=== PATIENT | male | born 1950 | race Caucasian/White ===

== ENCOUNTER → 2018-08-16 10:25 | Outpatient (CLI) | payer OTHER, SELFPAY ==
--- NOTE | 2018-08-16 | DI.MRI.S_ITS ---
PROCEDURE: MR KNEE RT WO CON INDICATIONS: TENDONITIS OF RIGHT KNEE TECHNIQUE: Noncontrast sagittal PD fast spin echo and T2 fast spin echo with fat saturation, sagittal 3-D FLASH with fat saturation; coronal T1 spin echo and PD fast spin echo with fat saturation, and axial PD fast spin echo with fat saturation through the knee. COMPARISON: None. FINDINGS: Image quality: Excellent. Menisci: There is medial meniscus extrusion. Complex tear is present involving the anterior and posterior horns, as well as body of the medial meniscus. The lateral menisci demonstrates normal morphology and internal signal. The meniscal root ligaments appear intact. Cruciate ligaments: Both feet anterior and posterior cruciate ligaments appear thickened and regular, suspicious for chronic injury. No acute ACL or PCL tear. Medial structures: The medial collateral ligament appears intact. The meniscocapsular junction appear intact. Visualized portions of the pes anserinus tendons appear normal. No abnormal bursal fluid. Lateral structures: The lateral collateral ligament and the biceps femoris tendon appear intact. The popliteus tendon appears normal. Iliotibial band appears normal. Anterior structures: The quadriceps and patellar tendons appear intact. Patellar alignment is normal. No femoral trochlear dysplasia or ventral trochlear prominence. No edema in the infrapatellar fat pad. Bones and cartilage: No bone fractures. Mild pulmonary edema in the medial femoral condyle and medial tibial plateau. There is severe cartilage thinning and degeneration of the medial femorotibial compartments, as well as the moderate cartilage degeneration of the patellofemoral compartment. Joint space: There is a large knee joint effusion. Large multiseptated Ash's cyst. Fluid signal in the posterior soft tissue suggests partial rupture/leakage of fluid from the Ash cyst. Small synovial cyst consistent with a proximal tibiofibular joint. Normal appearing synovial plicae are incidentally noted. IMPRESSION: 1. Medial meniscus extrusion and complex tear of the medial meniscus. 2. Suspect old ACL and PCL injuries. No acute cruciate ligament tear. 3. Severe cartilage thinning and cartilage signal degeneration of the medial femorotibial compartment. Reactive marrow edema is present in the medial femorotibial compartment. 4. Large knee joint effusion. 5. Large complex Ash's cyst. 6. Small synovial cyst adjacent to the proximal tibiofibular joint. Dictated by: Luis Rogers M.D. on 08/18/2018 at 8:12 Transcribed by: ANISHA on 08/18/2018 at 8:17 Approved by: Luis Rogers M.D. on 08/18/2018 at 10:40
== END ==
PROVIDERS: PCP Internal Medicine; Visit Provider Orthopaedic Surgery
DX: M76.891 Other specified enthesopathies of right lower limb, excluding foot (principal); S83.231A Complex tear of medial meniscus, current injury, right knee, initial encounter; M25.461 Effusion, right knee; M17.11 Unilateral primary osteoarthritis, right knee
CPT/HCPCS: 73721

== ENCOUNTER → 2020-05-11 08:40 | Outpatient (CLI) | payer OTHER, SELFPAY ==
[2020-05-11 09:33] LABS: Add Manual Diff / Slide Review NO; Basophils Absolute Auto 0 /uL (0-100); Basophils Percent Auto 0.9 % (0-2); Eosinophils Absolute Auto 300 /uL (0-450); Eosinophils Percent Auto 6.3 % (2-4); Hematocrit 43.3 % (41-53); Hemoglobin 14.9 g/dL (13.5-17.5); Lymphocytes Absolute Auto 900 /uL (1100-4500); Lymphocytes Percent Auto 22.5 % (25-40); Mean Corpuscular HGB Conc 34.4 % (30-36); Mean Corpuscular Hemoglobin 33.1 PG (26-34); Mean Corpuscular Volume 96.3 fL (80-100); Monocytes Absolute Auto 400 /uL (0-900); Monocytes Percent Auto 10.5 % (3-14); Neutrophils Absolute Auto 2400 /uL (1500-7000); Neutrophils Percent Auto 59.8 % (50-75); Platelet Count 141 X10^3/uL (150-400); Red Cell Distribution Width 13.1 % (11.6-14.8); White Blood Cell Count 4.1 X10^3/uL (4.5-11.0)
[2020-05-11 09:40] LABS: Alanine Aminotransferase 29 IU/L (<50); Albumin 4.4 g/dL (3.5-5.0); Albumin Globulin Ratio 1.6 (1.0-2.8); Alkaline Phosphatase 55 U/L (38-126); Aspartate Aminotransferase 42 IU/L (17-59); BUN Creatinine Ratio 17.9 (6-22); Bilirubin Total 0.9 mg/dL (0.2-1.3); Blood Urea Nitrogen 17 mg/dL (9-20); Calcium 9.3 mg/dL (8.4-10.2); Carbon Dioxide 26 mmol/L (22-32); Chloride 105 mmol/L (98-107); Cholesterol 190 mg/dL (140-199); Estimated Glomerular Filt Rate > 60.0 mL/min (>60); Globulin 2.8 g/dL (1.7-4.1); Glucose 114 mg/dL (80-110); HDL Cholesterol 76 mg/dL (40-60); HEMOLYSIS < 15 (0-50); LDL Cholesterol Calculated 93 mg/dL (<100); Potassium 4.4 mmol/L (3.4-5.1); Sodium 137 mmol/L (137-145); Total Protein 7.2 g/dL (6.3-8.2); Triglycerides 106 mg/dL (35-150)
[2020-05-11 10:03] LABS: Prostate Specific Antigen Scrn 0.471 ng/mL (0.1-4.0)
== END ==
PROVIDERS: PCP Internal Medicine; Referring Provider Internal Medicine; Visit Provider Internal Medicine
DX: M15.0 Primary generalized (osteo)arthritis (principal); N52.9 Male erectile dysfunction, unspecified; E78.2 Mixed hyperlipidemia; Z12.5 Encounter for screening for malignant neoplasm of prostate
CPT/HCPCS: 36415; 80053; 80061; 84443; 85025; G0103

== ENCOUNTER 2022-09-15 18:03 | Inpatient (IN) | payer OTHER, SELFPAY ==
[2022-09-15] VITALS (25 sets, daily range): BP systolic 147–215; BP diastolic 73–105; PULSE 58–81; RESP 11–41; TEMP 37.2; O2SAT 95–99; BMI 28.7
[2022-09-15 19:13] LABS: Add Manual Diff / Slide Review NO; Basophils Absolute Auto 0 /uL (0-100); Basophils Percent Auto 0.3 % (0-2); Eosinophils Absolute Auto 0 /uL (0-450); Eosinophils Percent Auto 0.1 % (2-4); Hematocrit 47.4 % (41-53); Hemoglobin 16.4 g/dL (13.5-17.5); Lymphocytes Absolute Auto 1200 /uL (1100-4500); Lymphocytes Percent Auto 10.9 % (25-40); Mean Corpuscular HGB Conc 34.5 % (30-36); Mean Corpuscular Hemoglobin 32.5 PG (26-34); Mean Corpuscular Volume 94.1 fL (80-100); Monocytes Absolute Auto 900 /uL (0-900); Monocytes Percent Auto 8.5 % (3-14); Neutrophils Absolute Auto 8900 /uL (1500-7000); Neutrophils Percent Auto 80.2 % (50-75); Platelet Count 170 X10^3/uL (150-400); Red Blood Cell Count 5.03 X10^6/uL (4.5-5.9); Red Cell Distribution Width 13.5 % (11.6-14.8)
[2022-09-15 19:19] LABS: Alanine Aminotransferase 31 IU/L (<50); Albumin 4.5 g/dL (3.5-5.0); Albumin Globulin Ratio 1.2 (1.0-2.8); Alkaline Phosphatase 53 U/L (38-126); Aspartate Aminotransferase 58 IU/L (17-59); BUN Creatinine Ratio 23.5 (6-22); Blood Urea Nitrogen 23 mg/dL (9-20); Carbon Dioxide 21 mmol/L (22-32); Chloride 99 mmol/L (98-107); Estimated Glomerular Filt Rate > 60 mL/min (>60); Globulin 3.7 g/dL (1.7-4.1); Glucose 162 mg/dL (80-110); HEMOLYSIS < 15 (0-50); Lipase 34 U/L (23-300); Sodium 131 mmol/L (137-145); Total Protein 8.2 g/dL (6.3-8.2)
--- NOTE | 2022-09-15 20:12 | ED.ABDPAIN ---
HPI - Abdominal Pain General Chief Complaint: Abdominal Pain Stated Complaint: Peptic Ulcer Flare Up Time Seen by Provider: 09/15/22 18:07 Source: patient Mode of arrival: Ambulatory History of Present Illness HPI narrative: 72-year-old male smoker and daily drinker presents with his in the chief complaint of epigastric pain and nausea which has been severe over the past few days. His states they had a holiday green party and symptoms started in the aftermath, admittedly they consumed multiple Rich cookies and other elements to their diet that are atypical for them. He drinks at least a couple drinks per day and likely had a bit more on that particular day. He states this burning sensation is made worse by eating and drinking, even water and by lying flat. He denies other provocation or palliation. He denies any radiation of his symptoms. He is otherwise well and free of complaint. He denies any dizziness, weakness or lightheadedness. He has no sore throat, cough or chest pain. He denies any difficulty breathing, recent travel or trauma. He has no change in bowel habits such as constipation or diarrhea. He denies any dysuria, frequency or urgency. He states he does have a history of this in the past but has never had an endoscopy Related Data Allergies Allergy/AdvReac Type Severity Reaction Status Date / Time No Known Drug Allergies Allergy Verified 09/15/22 18:14 Review of Systems Review of Systems Narrative: GENERAL: Denies chills, fatigue, malaise, fever, sweats. HEENT: Denies sinus pain, ear pain, sore throat, difficulty swallowing, dizziness. RESPIRATORY: Denies dyspnea, cough, wheezing, hemoptysis, sputum. CARDIOVASCULAR: See HPI GASTROINTESTINAL: See HPI : Denies dysuria, frequency, incontinence, hematuria, urinary retention. MUSCULOSKELETAL: denies weakness, joint pain, or bony pain SKIN: Denies rash, skin lesions, or other NEUROLOGIC: Denies weakness, headache, numbness, change in speech, confusion, seizures, incoordination. PSYCHIATRIC: No concerning psychosocial issues. 12 point review of systems is negative except for those stated above Patient History Social History Smoking Status: Current every day smoker Smoking Status: Current every day smoker alcohol intake frequency: 0-2 drinks per day Substance Use Type: marijuana Exam Narrative Exam Narrative: GENERAL: [72] year old patient appears stated age. Well-developed patient, in mild distress. HEAD: Atraumatic. Normocephalic. EYES: Pupils equal round and reactive. Extraocular motions intact. No scleral icterus. No injection or drainage. ENT: Nose without bleeding, purulent drainage. Throat without erythema, tonsillar hypertrophy or exudate. Airway patent. NECK: Trachea midline. Non tender CARDIOVASCULAR: Regular rate and rhythm without murmurs, gallops, or rubs. RESPIRATORY: Clear to auscultation. Breath sounds equal bilaterally. No wheezes, rales, or rhonchi. GASTROINTESTINAL: Abdomen soft, tenderness in the epigastrium nondistended. EXTREMITIES: No edema or joint tenderness. BACK: Nontender without deformity or crepitance. No flank tenderness. NEURO: AOx3. SKIN: No rash or erythema of visible areas Initial Vital Signs Initial Vital Signs: Vital Signs Temperature 99.0 F 09/15/22 18:09 Pulse Rate 78 09/15/22 18:09 Respiratory Rate 22 09/15/22 18:09 Blood Pressure 180/105 H 09/15/22 18:09 Pulse Oximetry 97 09/15/22 18:09 Oxygen Delivery Method 09/15/22 18:09 Course Orders Ordered: ED Orders 09/15/22 18:20 BNP [NT-proBNP (BNP-Adult 18+)] Stat Complete Blood Count AUTO DIFF Stat Comprehensive Metabolic Panel Stat D Dimer Stat Lipase Stat Troponin & CK Cardiac Panel Stat 09/15/22 20:18 EKG-12 Lead Stat 09/15/22 20:26 US abdomen limited Stat 09/15/22 21:10 Urinalysis and Microscopic Stat Urine Culture Stat 09/15/22 21:11 COVID19 -Nasal RAPID/Pre-Proc Stat 09/15/22 21:15 CT angio chest PE protocol Stat EKG-12 Lead Stat 09/15/22 22:21 Partial Thromboplastin Time Q6H Troponin & CK Cardiac Panel Stat 09/16/22 04:15 Partial Thromboplastin Time Q6H 09/16/22 10:15 Partial Thromboplastin Time Q6H 09/16/22 16:15 Partial Thromboplastin Time Q6H Heparin Sodium/Dextrose (Heparin Drip) 25,000 unit in 500 mls @ 20 mls/hr IV CONT MARÍA; Protocol Last Admin: 09/15/22 22:29 Dose: 1,000 units/hr, 20 mls/hr Documented By: ESE Discontinued Medications Aspirin (Aspirin 81 Mg Chew Tab) 324 mg PO NOW ONE Stop: 09/15/22 22:08 Last Admin: 09/15/22 22:47 Dose: Not Given Documented By: ESE Aspirin (Aspirin Ec 325 Mg Tablet) 325 mg PO NOW ONE Stop: 09/15/22 22:25 Last Admin: 09/15/22 22:46 Dose: 325 mg Documented By: ESE Heparin Sodium (Porcine) (Heparin 5,000 Unit/Ml Vial) 5,000 unit IV NOW ONE Stop: 09/15/22 22:09 Last Admin: 09/15/22 22:30 Dose: 5,000 unit Documented By: ESE Sodium Chloride (Normal Saline 0.9%) 1,000 mls @ 1,000 mls/hr IV BOLUS ONE Stop: 09/15/22 21:25 Last Infusion: 09/15/22 22:28 Dose: 0 mls/hr Documented By: Admin: 09/15/22 20:33 Dose: 1,000 mls/hr Documented By: ESE Nitroglycerin (Nitroglycerin 0.4 Mg Sl Tab) 0.4 mg SL [id number] PRN PRN Reason: Chest Pain Last Admin: 09/15/22 23:09 Dose: 0.4 mg Documented By: Admin: 09/15/22 22:52 Dose: 0.4 mg Documented By: Admin: 09/15/22 22:36 Dose: 0.4 mg Documented By: ESE Ondansetron HCl (Ondansetron 4 Mg/2 Ml Inj) 4 mg IV NOW ONE Stop: 09/15/22 20:27 Last Admin: 09/15/22 20:36 Dose: 4 mg Documented By: ESE Pantoprazole Sodium (Pantoprazole 40 Mg Vial) 40 mg IV NOW ONE Stop: 09/15/22 20:27 Last Admin: 09/15/22 20:36 Dose: 40 mg Documented By: ESE Consultations Consultation #1: discussed with ammonia refrigeration worker cardiology (Dipesh). We have discussed history, physical exam, labs, EKG. Response to therapies. He recommends keeping patient here, on heparin, ASA. Get echo, likely stress test and proceed accordingly. NO need to transfer. Consultation #2: Hospitalist happy to accept Vital Signs Vital signs: Vital Signs - 8 hr 09/15/22 20:17 09/15/22 20:17 09/15/22 20:30 Pulse Rate 62 61 Respiratory Rate Blood Pressure 169/80 H Pulse Oximetry 99 99 Oxygen Delivery Method 09/15/22 20:45 09/15/22 21:00 09/15/22 21:10 Pulse Rate 60 67 62 Respiratory Rate 17 Blood Pressure Pulse Oximetry 98 99 98 Oxygen Delivery Method Room Air 09/15/22 21:10 09/15/22 21:15 09/15/22 21:30 Pulse Rate 60 61 Respiratory Rate 25 H 41 H Blood Pressure 183/93 H Pulse Oximetry 98 99 Oxygen Delivery Method 09/15/22 21:45 09/15/22 22:00 09/15/22 22:12 Pulse Rate 69 76 Respiratory Rate 32 H 33 H Blood Pressure 215/98 H Pulse Oximetry 99 98 Oxygen Delivery Method 09/15/22 22:12 09/15/22 22:36 09/15/22 22:52 Pulse Rate 64 62 65 Respiratory Rate 11 L Blood Pressure 174/89 H 156/73 H 159/88 H Pulse Oximetry 99 Oxygen Delivery Method 09/15/22 22:15 09/15/22 22:15 09/15/22 22:30 Pulse Rate 62 Respiratory Rate 21 Blood Pressure 174/89 H 159/83 H Pulse Oximetry 98 Oxygen Delivery Method 09/15/22 22:30 09/15/22 22:38 09/15/22 22:38 Pulse Rate 58 L 63 Respiratory Rate 17 26 H Blood Pressure 158/81 H Pulse Oximetry 99 97 Oxygen Delivery Method 09/15/22 22:45 09/15/22 22:49 09/15/22 22:49 Pulse Rate 68 72 Respiratory Rate 15 28 H Blood Pressure 159/88 H Pulse Oximetry 98 98 Oxygen Delivery Method 09/15/22 23:09 09/15/22 23:00 09/15/22 23:00 Pulse Rate 66 81 Respiratory Rate 29 H Blood Pressure 148/76 H 147/90 H Pulse Oximetry 98 Oxygen Delivery Method 09/15/22 23:15 09/15/22 23:26 09/15/22 23:26 Pulse Rate 64 65 Respiratory Rate 20 36 H Blood Pressure 182/103 H Pulse Oximetry 95 98 Oxygen Delivery Method 09/15/22 23:27 09/15/22 23:27 09/15/22 23:30 Pulse Rate 72 Respiratory Rate 25 H Blood Pressure 157/95 H 157/98 H Pulse Oximetry 98 Oxygen Delivery Method 09/15/22 23:30 09/15/22 23:45 09/16/22 00:00 Pulse Rate 67 62 Respiratory Rate 29 H 21 Blood Pressure 154/85 H Pulse Oximetry 97 98 Oxygen Delivery Method 09/16/22 00:00 09/16/22 00:15 09/16/22 00:30 Pulse Rate 60 73 Respiratory Rate 16 27 H Blood Pressure 148/77 H Pulse Oximetry 97 Oxygen Delivery Method 09/16/22 00:30 09/16/22 00:45 09/16/22 01:00 Pulse Rate 63 64 60 Respiratory Rate 17 19 19 Blood Pressure Pulse Oximetry 99 98 96 Oxygen Delivery Method 09/16/22 01:01 09/16/22 01:01 Pulse Rate 78 Respiratory Rate 39 H Blood Pressure 170/76 H Pulse Oximetry 98 Oxygen Delivery Method MDM - Abdominal Pain Lab Data Result diagrams: 09/15/22 18:20 09/15/22 18:20 Labs: Lab Results 09/15/22 09/15/22 09/15/22 Range/Units 18:20 18:20 18:20 WBC 11.0 (4.5-11.0) X10^3/uL RBC 5.03 (4.5-5.9) X10^6/uL Hgb 16.4 (13.5-17.5) g/dL Hct 47.4 (41-53) % MCV 94.1 (80-100) fL MCH 32.5 (26-34) PG MCHC 34.5 (30-36) % RDW 13.5 (11.6-14.8) % Plt Count 170 (150-400) X10^3/uL Neut % (Auto) 80.2 H (50-75) % Lymph % (Auto) 10.9 L (25-40) % [place] % (Auto) 8.5 (3-14) % Eos % (Auto) 0.1 L (2-4) % Baso % (Auto) 0.3 (0-2) % Neut # (Auto) 8900 H (9981-6763) /uL Lymph # (Auto) 1200 (3961-2239) /uL [place] # (Auto) 900 (0-900) /uL Eos # (Auto) 0 (0-450) /uL Baso # (Auto) 0 (0-100) /uL APTT (26-36) SECONDS D-Dimer (<500) ng/ml Sodium 131 L (137-145) mmol/L Potassium 4.0 (3.4-5.1) mmol/L Chloride 99 (98-107) mmol/L Carbon Dioxide 21 L (22-32) mmol/L BUN 23 H (9-20) mg/dL Creatinine 0.98 (0.66-1.25) mg/dL Estimated GFR > 60 (>60) mL/min BUN/Creatinine Ratio 23.5 H (6-22) Glucose 162 H (80-110) mg/dL Calcium 10.0 (8.4-10.2) mg/dL Total Bilirubin 1.0 (0.2-1.3) mg/dL AST 58 (17-59) IU/L ALT 31 (<50) IU/L Alkaline Phosphatase 53 (38-126) U/L Total Creatine Kinase 635 H (55-170) U/L CK-MB (CK-2) 7.96 H (<2.37) ng/mL CK-MB (CK-2) Rel Index 1.3 L (1.5-5.0) % Troponin I 0.174 H* (0.01-0.034) ng/mL NT-Pro-B Natriuret Pep (<125) pg/mL Total Protein 8.2 (6.3-8.2) g/dL Albumin 4.5 (3.5-5.0) g/dL Globulin 3.7 (1.7-4.1) g/dL Albumin/Globulin Ratio 1.2 (1.0-2.8) Lipase 34 (23-300) U/L Urine Color Urine Appearance Urine pH (4.5-8.0) Ur Specific [place] (1.000-1.035) Urine Protein (Negative) Urine Glucose (UA) (Negative) g/dL Urine Ketones (NEGATIVE) Urine Occult Blood (Negative) Urine Nitrate (Negative) Urine Bilirubin (NEGATIVE) Urine Urobilinogen (0.2) E.U./dL Ur Leukocyte Esterase (NEGATIVE) Urine RBC (0-5/HPF) Urine WBC (0-5/HPF) Ur Squamous Epith Cells (0-5/HPF) Urine Bacteria (None) Ur Culture Indicated? SARS-CoV-2 (PCR) (Negative) 09/15/22 09/15/22 09/15/22 Range/Units 18:20 18:20 21:10 WBC (4.5-11.0) X10^3/uL RBC (4.5-5.9) X10^6/uL Hgb (13.5-17.5) g/dL Hct (41-53) % MCV (80-100) fL MCH (26-34) PG MCHC (30-36) % RDW (11.6-14.8) % Plt Count (150-400) X10^3/uL Neut % (Auto) (50-75) % Lymph % (Auto) (25-40) % [place] % (Auto) (3-14) % Eos % (Auto) (2-4) % Baso % (Auto) (0-2) % Neut # (Auto) (6499-6221) /uL Lymph # (Auto) (4374-4238) /uL [place] # (Auto) (0-900) /uL Eos # (Auto) (0-450) /uL Baso # (Auto) (0-100) /uL APTT (26-36) SECONDS D-Dimer 1091 H (<500) ng/ml Sodium (137-145) mmol/L Potassium (3.4-5.1) mmol/L Chloride (98-107) mmol/L Carbon Dioxide (22-32) mmol/L BUN (9-20) mg/dL Creatinine (0.66-1.25) mg/dL Estimated GFR (>60) mL/min BUN/Creatinine Ratio (6-22) Glucose (80-110) mg/dL Calcium (8.4-10.2) mg/dL Total Bilirubin (0.2-1.3) mg/dL AST (17-59) IU/L ALT (<50) IU/L Alkaline Phosphatase (38-126) U/L Total Creatine Kinase (55-170) U/L CK-MB (CK-2) (<2.37) ng/mL CK-MB (CK-2) Rel Index (1.5-5.0) % Troponin I (0.01-0.034) ng/mL NT-Pro-B Natriuret Pep 3140 H (<125) pg/mL Total Protein (6.3-8.2) g/dL Albumin (3.5-5.0) g/dL Globulin (1.7-4.1) g/dL Albumin/Globulin Ratio (1.0-2.8) Lipase (23-300) U/L Urine Color Yellow Urine Appearance Clear Urine pH 5.5 (4.5-8.0) Ur Specific [place] 1.010 (1.000-1.035) Urine Protein 1+ H (Negative) Urine Glucose (UA) Negative (Negative) g/dL Urine Ketones Trace H (NEGATIVE) Urine Occult Blood 2+ H (Negative) Urine Nitrate Negative (Negative) Urine Bilirubin Negative (NEGATIVE) Urine Urobilinogen 0.2 (0.2) E.U./dL Ur Leukocyte Esterase Trace H (NEGATIVE) Urine RBC 0-1/hpf (0-5/HPF) Urine WBC 1-5/hpf (0-5/HPF) Ur Squamous Epith Cells 0-1 /hpf (0-5/HPF) Urine Bacteria None seen (None) Ur Culture Indicated? Specimen cultured SARS-CoV-2 (PCR) (Negative) 09/15/22 09/15/22 09/15/22 Range/Units 21:11 22:21 22:21 WBC (4.5-11.0) X10^3/uL RBC (4.5-5.9) X10^6/uL Hgb (13.5-17.5) g/dL Hct (41-53) % MCV (80-100) fL MCH (26-34) PG MCHC (30-36) % RDW (11.6-14.8) % Plt Count (150-400) X10^3/uL Neut % (Auto) (50-75) % Lymph % (Auto) (25-40) % [place] % (Auto) (3-14) % Eos % (Auto) (2-4) % Baso % (Auto) (0-2) % Neut # (Auto) (1675-8036) /uL Lymph # (Auto) (4079-9800) /uL [place] # (Auto) (0-900) /uL Eos # (Auto) (0-450) /uL Baso # (Auto) (0-100) /uL APTT 27 (26-36) SECONDS D-Dimer (<500) ng/ml Sodium (137-145) mmol/L Potassium (3.4-5.1) mmol/L Chloride (98-107) mmol/L Carbon Dioxide (22-32) mmol/L BUN (9-20) mg/dL Creatinine (0.66-1.25) mg/dL Estimated GFR (>60) mL/min BUN/Creatinine Ratio (6-22) Glucose (80-110) mg/dL Calcium (8.4-10.2) mg/dL Total Bilirubin (0.2-1.3) mg/dL AST (17-59) IU/L ALT (<50) IU/L Alkaline Phosphatase (38-126) U/L Total Creatine Kinase 611 H (55-170) U/L CK-MB (CK-2) 7.47 H (<2.37) ng/mL CK-MB (CK-2) Rel Index 1.2 L (1.5-5.0) % Troponin I 0.147 H* (0.01-0.034) ng/mL NT-Pro-B Natriuret Pep (<125) pg/mL Total Protein (6.3-8.2) g/dL Albumin (3.5-5.0) g/dL Globulin (1.7-4.1) g/dL Albumin/Globulin Ratio (1.0-2.8) Lipase (23-300) U/L Urine Color Urine Appearance Urine pH (4.5-8.0) Ur Specific [place] (1.000-1.035) Urine Protein (Negative) Urine Glucose (UA) (Negative) g/dL Urine Ketones (NEGATIVE) Urine Occult Blood (Negative) Urine Nitrate (Negative) Urine Bilirubin (NEGATIVE) Urine Urobilinogen (0.2) E.U./dL Ur Leukocyte Esterase (NEGATIVE) Urine RBC (0-5/HPF) Urine WBC (0-5/HPF) Ur Squamous Epith Cells (0-5/HPF) Urine Bacteria (None) Ur Culture Indicated? SARS-CoV-2 (PCR) Negative (Negative) Imaging Data CT scan - chest: Radiologist's Impression: Close Chest CTA (Signed) Lucas Young - 09/15/22 Launch?[address] [address] [address] Scan Report Signed Patient: Jeffry Reich MR#: [id number] : 1950 Acct:[id number] Age/Sex: 72 / M Date of Service: 09/15/22 Loc: ED Accession Number: [id number] ?? Procedure: CT angio chest PE protocol Ordering Provider: Quintin Aguilar D.O. PROCEDURE:? CT ANGIO CHEST PE PROTOCOL ? INDICATIONS:? chest pain, SOB, elevated trop, elevated DDimer ? TECHNIQUE:? After the administration of intravenous contrast, 2 mm thick sections acquired from the pulmonary apices to the posterior costophrenic angles.? 3-dimensional maximum intensity projection (MIP) coronal and sagittal reformats were then acquired through the thorax.? For radiation dose reduction, the following was used:? automated exposure control, adjustment of mA and/or kV according to patient size.? ? COMPARISON:? None. ? FINDINGS:? Image quality:? Excellent.? ? Pulmonary arteries:? Pulmonary arteries are normal in size, and demonstrate no intraluminal filling defects to suggest central pulmonary embolism.? ? Lungs and pleura:? Lungs are clear.? No pleural effusions or pneumothorax.? Central and peripheral airways are patent.? ? Mediastinum:? Heart size is normal, without pericardial effusion.? No mediastinal or hilar adenopathy.? Thoracic aorta is normal in caliber and enhancement.? Esophagus is normal in caliber, without hiatal hernia.? ? Bones and chest wall:? No suspicious bony lesions.? Ribs and thoracic spine appear intact throughout.? Thyroid gland is not fully visualized.? No axillary or supraclavicular adenopathy.? ? Abdomen:? Visualized upper abdominal solid organs appear normal in the early arterial phase of enhancement except at the liver where within the right posterior hepatic segment mid liver level there is a 1 cm hypodensity that could represent a mildly complex cyst or hemangioma seen on series 4, image 141.? .? ? IMPRESSION:? No pulmonary embolus is found.? There is no pneumonia identified.? Incidental note is made of a 1 cm nonspecific hypodensity within the right posterior hepatic segment which if clinically desired could be further assessed by elective follow-up ultrasound to attempt to differentiate between cyst versus hemangioma. ? ? Dictated by: Lucas Young M.D. on 09/15/2022 at 21:50 ? ? Approved by: Lucas Young M.D. on 09/15/2022 at 21:53 ? [facility] Narrative Medical decision making narrative: 72-year-old male smoker and drinker presents with epigastric pain that initially a painted the picture of a GI presentation. He described it as burning that seemed to worsen with eating and drinking, denies other cardiac equivalent such as dizziness, weakness, lightheadedness, nausea, vomiting, exercise intolerance or unexplained diaphoresis. EKGs showed no obvious occlusive findings. He denies any cardiac history. He does state that at 1 point about 1 week ago when walking up a hill he developed some chest pressure and became short of breath but that was short lived and resolved and he is had multiple opportunities to hike that same [place] in the aftermath without any change, however during our workup his initial troponin was found to be elevated at 0.174, after the 3rd nitro his pain completely resolved. A repeat troponin was obtained and had come down somewhat. He does have an elevated BNP but has no signs of heart failure clinically, denies exertional dyspnea, orthopnea, has no crackles on his exam and no lower extremity edema. Furthermore, chest x-ray shows no obvious signs of heart failure and he is not hypoxemic. He does have a D-dimer above the cutoff and therefore a CT angiogram was obtained which demonstrates no evidence of pulmonary embolism. I have discussed this case with on-call cardiology who given the scenario is comfortable keeping the patient at our facility to complete the workup and suggest against the need for transfer at this time. With this information hospitalist happy to accept patient at our facility. Patient and understand and agree with the plan Discharge Plan Departure Patient Disposition: Admitted As Inpatient Clinical Impression: Acute non-ST elevation myocardial infarction (NSTEMI) Referrals: Serafin Tsang MD [Primary Care Provider] - Admit Date/Time: 09/16/22 02:54
--- NOTE | 2022-09-15 20:26 | DI.US.S_ITS ---
PROCEDURE: US ABDOMEN LIMITED INDICATIONS: EPIGASTRIC PAIN TECHNIQUE: Real-time focused scanning was performed of the abdomen, with image documentation. COMPARISON: None. FINDINGS: The liver is normal in size at 14.6 cm craniocaudad and also normal in echotexture. Within the right hepatic lobe there is a mildly irregular cyst measuring 1.4 x 1.1 x 1.0 cm. The main portal vein shows normal direction of blood flow. The gallbladder appears normal. The bile ducts are poorly seen due to bowel gas. The pancreas could not be well visualized also for the same reason. IMPRESSION: Source of epigastric pain is not seen. Incidental note is made of a right hepatic lobe cyst. Quality of visualization through the area of concern is relatively limited due to overlying bowel gas. Dictated by: Lucas Young M.D. on 09/15/2022 at 22:24 Approved by: Lucas Young M.D. on 09/15/2022 at 22:26
[2022-09-15] MEDS: SODIUM CHLORIDE 0.9% 1,000 ML 1000 ML IV (20:33)
[2022-09-15] MEDS: PANTOPRAZOLE 40 MG VIAL IV (20:36)
[2022-09-15] MEDS: ONDANSETRON 4 MG/2 ML INJ IV (20:36)
[2022-09-15 20:40] LABS: Creatine Kinase 635 U/L (55-170)
[2022-09-15 20:55] LABS: CKMB % Relative Index 1.3 % (1.5-5.0); Creatine Kinase MB 7.96 ng/mL (<2.37); Troponin I 0.174 ng/mL (0.01-0.034)
[2022-09-15 21:03] LABS: D Dimer 1091 ng/ml (<500)
--- NOTE | 2022-09-15 21:15 | DI.CT.S_ITS ---
PROCEDURE: CT ANGIO CHEST PE PROTOCOL INDICATIONS: chest pain, SOB, elevated trop, elevated DDimer TECHNIQUE: After the administration of intravenous contrast, 2 mm thick sections acquired from the pulmonary apices to the posterior costophrenic angles. 3-dimensional maximum intensity projection (MIP) coronal and sagittal reformats were then acquired through the thorax. For radiation dose reduction, the following was used: automated exposure control, adjustment of mA and/or kV according to patient size. COMPARISON: None. FINDINGS: Image quality: Excellent. Pulmonary arteries: Pulmonary arteries are normal in size, and demonstrate no intraluminal filling defects to suggest central pulmonary embolism. Lungs and pleura: Lungs are clear. No pleural effusions or pneumothorax. Central and peripheral airways are patent. Mediastinum: Heart size is normal, without pericardial effusion. No mediastinal or hilar adenopathy. Thoracic aorta is normal in caliber and enhancement. Esophagus is normal in caliber, without hiatal hernia. Bones and chest wall: No suspicious bony lesions. Ribs and thoracic spine appear intact throughout. Thyroid gland is not fully visualized. No axillary or supraclavicular adenopathy. Abdomen: Visualized upper abdominal solid organs appear normal in the early arterial phase of enhancement except at the liver where within the right posterior hepatic segment mid liver level there is a 1 cm hypodensity that could represent a mildly complex cyst or hemangioma seen on series 4, image 141. . IMPRESSION: No pulmonary embolus is found. There is no pneumonia identified. Incidental note is made of a 1 cm nonspecific hypodensity within the right posterior hepatic segment which if clinically desired could be further assessed by elective follow-up ultrasound to attempt to differentiate between cyst versus hemangioma. Dictated by: Lucas Young M.D. on 09/15/2022 at 21:50 Approved by: Lucas Young M.D. on 09/15/2022 at 21:53
[2022-09-15 21:28] LABS: Appearance Urine UA CLEAR; Bilirubin Urine UA NEGATIVE (NEGATIVE); Color Urine UA YELLOW; Glucose Urine UA NEGATIVE (Negative); Ketones Urine UA TRACE (NEGATIVE); Leukocyte Esterase Urine UA TRACE (NEGATIVE); Nitrite Urine UA NEGATIVE (Negative); Occult Blood Urine UA 2+ (Negative); Protein Urine UA 1+ (Negative); Urobilinogen Urine UA 0.2 E.U./dL (0.2); pH Urine UA 5.5 (4.5-8.0)
[2022-09-15 21:34] LABS: COVID19 -Nasal RAPID Negative (Negative)
[2022-09-15 21:36] LABS: NT-proBNP (BNP-Adult 18+) 3140 pg/mL (<125)
[2022-09-15 21:46] LABS: Bacteria Urine None Seen; Culture Indicated Urine Specimen Cultured; RBC Urine 0-1/HPF (0-5/HPF); Squamous Epithelial Cell Urine 0-1 /HPF (0-5/HPF); WBC Urine 1-5/HPF (0-5/HPF)
[2022-09-15] MEDS: HEPARIN DRIP 25,000 UNIT/500 ML IV.SOLN 20 UNIT IV (22:29)
[2022-09-15] MEDS: HEPARIN 5,000 UNIT/ML VIAL 5000 UNIT IV (22:30)
[2022-09-15] MEDS: NITROGLYCERIN 0.4 MG SL TAB SL ×3 (22:36→23:09)
[2022-09-15 22:44] LABS: PTT Partial Thromboplastin Tim 27 SECONDS (26-36)
[2022-09-15 22:45] LABS: Creatine Kinase 611 U/L (55-170)
[2022-09-15] MEDS: ASPIRIN EC 325 MG TABLET PO (22:46)
[2022-09-15 23:01] LABS: CKMB % Relative Index 1.2 % (1.5-5.0); Creatine Kinase MB 7.47 ng/mL (<2.37)
[2022-09-15 23:27] LABS: Troponin I 0.147 ng/mL (0.01-0.034)
[2022-09-16] VITALS (12 sets, daily range): BP systolic 140–177; BP diastolic 76–97; PULSE 60–78; RESP 14–39; TEMP 36.6–37.1; O2SAT 96–100; BMI 29.5
--- NOTE | 2022-09-16 04:26 | DI.ECHO.S_ITS ---
[facility]---------+ [facility] +---------+ : : [address] : : : : [place] : : : : [id number] : : : : Phone: [phone]+ Echocardiogram Report + + :Name: SALOMON PERKINS Study Date: 09/16/2022 Height: 73 in : :[facility] ReadingLocation: Weight: 223 lb : : Gender: Male BSA: 2.3 m2 : :: 1950 Age: 72 yrs BP: 140/87 mmHg: :Reason For Study: NSTEMI : :Ordering Physician: : :YULI HUITRON Performed By: Alex Shipley : :Referring: YULI HUITRON : + + Interpretation Summary The left ventricle is normal in size. Left ventricular systolic function is normal. The ejection fraction is estimated to be 55-60%. There are no focal wall motion abnormalities. Diastolic parameters suggest a relaxation abnormality of the left ventricle, consistent with probable normal filling pressures. The right ventricle is normal in size and function. Pulmonary artery pressures cannot be estimated because of the lack of a measurable TR jet velocity. The left atrium is mildly dilated. Right atrial size is normal. There is no significant valvular heart disease. The ascending aorta is mild-moderately enlarged. Procedure: A two-dimensional transthoracic echocardiogram with color flow and Doppler was performed. The study quality was technically adequate. There is no prior echocardiogram noted for this patient. The patient was in normal sinus rhythm during the exam. Left Ventricle: The left ventricle is normal in size. There is mild concentric left ventricular hypertrophy. Left ventricular systolic function is normal. The ejection fraction is estimated to be 55-60%. There are no focal wall motion abnormalities. Diastolic parameters suggest a relaxation abnormality of the left ventricle, consistent with probable normal filling pressures. Right Ventricle: The right ventricle is normal in size and function. Atria: The left atrium is mildly dilated. Right atrial size is normal. The interatrial septum grossly appears intact with no obvious evidence for an atrial septal defect. Mitral Valve: The mitral valve is normal in structure and function. There is no mitral regurgitation noted. Aortic Valve: The aortic valve is normal in structure and function. No aortic regurgitation is present. Tricuspid Valve: The tricuspid valve is normal in structure and function. No tricuspid regurgitation. Pulmonary artery pressures cannot be estimated because of the lack of a measurable TR jet velocity. Pulmonic Valve: The pulmonic valve is normal in structure and function. There is no pulmonic valvular regurgitation. There is no significant valvular heart disease. Great Vessels: The aortic root is normal size. The ascending aorta is mild- moderately enlarged. The IVC is of normal diameter and collapses greater than 50% with a sniff. This suggests a low right atrial pressure of 3 mm Hg. Pericardium/ Pleura There is no pericardial effusion. There is no pleural effusion. MMode/2D Measurements & Calculations LVIDd: 5.3 cm LVOT diam: 2.1 cm LVIDs: 3.4 cm Ao root diam: 3.8 cm FS: 35.9 % asc Aorta Diam: 4.1 cm IVSd: 1.3 cm LVPWd: 1.2 cm LV crespo. diameter/BSA (cm/m^2): 2.3 LV sys. diameter/BSA (cm/m^2): 1.5 LA A2 area: 27.0 cm2 RA long axis: 5.6 cm LA A4 area: 25.3 cm2 RA area: 16.9 cm2 LA length (vol): 6.4 cm RA vol: 42.8 ml LA vol: 90.4 ml RA : 19.0 ml/m2 LA vol index: 40.1 ml/m2 TAPSE: 2.9 cm Doppler Measurements & Calculations Ao V2 max: 113.9 cm/sec LVOT Max Sridhar: 108.6 cm/sec Ao V2 mean: 82.8 cm/sec LV V1 max P.7 mmHg Ao max P.2 mmHg LV V1 VTI: 23.5 cm Ao mean P.1 mmHg MARILU(I,D): 3.5 cm2 Ao V2 VTI: 23.6 cm MARILU(V,D): 3.3 cm2 sev ratio: 0.99 MARILU indexed to BSA (cm^2/m^2): 1.5 MV E max sridhar: 57.9 cm/sec SV(LVOT): 81.7 ml MV A max sridhar: 76.8 cm/sec MV E/A: 0.75 Med Peak E' Sridhar: 4.5 cm/sec E/E' med: 12.9 Lat Peak E' Sridhar: 6.1 cm/sec E/E' lat: 9.5 E/e' average: 11.2 MV dec time: 0.33 sec Reading Physician:02:11 PM
[2022-09-16 04:36] LABS: Add Manual Diff / Slide Review NO; Basophils Absolute Auto 100 /uL (0-100); Basophils Percent Auto 0.9 % (0-2); Eosinophils Absolute Auto 0 /uL (0-450); Eosinophils Percent Auto 0.2 % (2-4); Hematocrit 44.1 % (41-53); Hemoglobin 15.2 g/dL (13.5-17.5); Lymphocytes Absolute Auto 1300 /uL (1100-4500); Lymphocytes Percent Auto 16.7 % (25-40); Mean Corpuscular HGB Conc 34.4 % (30-36); Mean Corpuscular Hemoglobin 32.3 PG (26-34); Mean Corpuscular Volume 93.8 fL (80-100); Monocytes Absolute Auto 700 /uL (0-900); Neutrophils Absolute Auto 5900 /uL (1500-7000); Neutrophils Percent Auto 73.2 % (50-75); Platelet Count 140 X10^3/uL (150-400); Red Cell Distribution Width 13.5 % (11.6-14.8)
[2022-09-16 04:44] LABS: PTT Partial Thromboplastin Tim 72 SECONDS (26-36)
[2022-09-16 04:46] LABS: BUN Creatinine Ratio 18.6 (6-22); Blood Urea Nitrogen 21 mg/dL (9-20); Calcium 8.8 mg/dL (8.4-10.2); Carbon Dioxide 27 mmol/L (22-32); Chloride 102 mmol/L (98-107); Estimated Glomerular Filt Rate > 60 mL/min (>60); Glucose 131 mg/dL (80-110); HEMOLYSIS < 15 (0-50); Potassium 3.9 mmol/L (3.4-5.1); Sodium 135 mmol/L (137-145)
[2022-09-16 05:02] LABS: Troponin I 0.129 ng/mL (0.01-0.034)
--- NOTE | 2022-09-16 05:07 | PC.ADMIT ---
[id number] [facility] Admission Note: The patient,Jeffry Reich,72 y/o, was given written information regarding hospital policies, unit procedures and contact persons. Patient's smoking status: Former smoker. Vital Signs - 8 hr 09/15/22 21:10 09/15/22 21:10 09/15/22 21:15 Temperature Pulse Rate 62 60 Respiratory Rate 17 25 H Blood Pressure 183/93 H Pulse Oximetry 98 98 Oxygen Delivery Method 09/15/22 21:30 09/15/22 21:45 09/15/22 22:00 Temperature Pulse Rate 61 69 76 Respiratory Rate 41 H 32 H 33 H Blood Pressure Pulse Oximetry 99 99 98 Oxygen Delivery Method 09/15/22 22:12 09/15/22 22:12 09/15/22 22:36 Temperature Pulse Rate 64 62 Respiratory Rate 11 L Blood Pressure 215/98 H 174/89 H 156/73 H Pulse Oximetry 99 Oxygen Delivery Method 09/15/22 22:52 09/15/22 22:15 09/15/22 22:15 Temperature Pulse Rate 65 62 Respiratory Rate 21 Blood Pressure 159/88 H 174/89 H Pulse Oximetry 98 Oxygen Delivery Method 09/15/22 22:30 09/15/22 22:30 09/15/22 22:38 Temperature Pulse Rate 58 L 63 Respiratory Rate 17 26 H Blood Pressure 159/83 H Pulse Oximetry 99 97 Oxygen Delivery Method 09/15/22 22:38 09/15/22 22:45 09/15/22 22:49 Temperature Pulse Rate 68 Respiratory Rate 15 Blood Pressure 158/81 H 159/88 H Pulse Oximetry 98 Oxygen Delivery Method 09/15/22 22:49 09/15/22 23:09 09/15/22 23:00 Temperature Pulse Rate 72 66 Respiratory Rate 28 H Blood Pressure 148/76 H 147/90 H Pulse Oximetry 98 Oxygen Delivery Method 09/15/22 23:00 09/15/22 23:15 09/15/22 23:26 Temperature Pulse Rate 81 64 65 Respiratory Rate 29 H 20 36 H Blood Pressure Pulse Oximetry 98 95 98 Oxygen Delivery Method 09/15/22 23:26 09/15/22 23:27 09/15/22 23:27 Temperature Pulse Rate 72 Respiratory Rate 25 H Blood Pressure 182/103 H 157/95 H Pulse Oximetry 98 Oxygen Delivery Method 09/15/22 23:30 09/15/22 23:30 09/15/22 23:45 Temperature Pulse Rate 67 62 Respiratory Rate 29 H 21 Blood Pressure 157/98 H Pulse Oximetry 97 98 Oxygen Delivery Method 09/16/22 00:00 09/16/22 00:00 09/16/22 00:15 Temperature Pulse Rate 60 73 Respiratory Rate 16 27 H Blood Pressure 154/85 H Pulse Oximetry 97 Oxygen Delivery Method 09/16/22 00:30 09/16/22 00:30 09/16/22 00:45 Temperature Pulse Rate 63 64 Respiratory Rate 17 19 Blood Pressure 148/77 H Pulse Oximetry 99 98 Oxygen Delivery Method 09/16/22 01:00 09/16/22 01:01 09/16/22 01:01 Temperature Pulse Rate 60 78 Respiratory Rate 19 39 H Blood Pressure 170/76 H Pulse Oximetry 96 98 Oxygen Delivery Method 09/16/22 03:12 09/16/22 03:44 09/16/22 03:55 Temperature 98.7 F Pulse Rate 62 65 66 Respiratory Rate 14 16 20 Blood Pressure 169/91 H 153/80 H 168/87 H Pulse Oximetry 97 98 96 Oxygen Delivery Method Room Air Room Air 09/16/22 05:04 Temperature Pulse Rate Respiratory Rate Blood Pressure Pulse Oximetry Oxygen Delivery Method Room Air Patient admitted to room 216 per stretcher from ER. Walked from stretcher into room and into bed. Is alert and oriented. Breath sounds CTA with RA sat of 96%. BP elevated at 168/87 and telemetry reading was SR w/PAC's. Patient reports he came to hospital because of epigastric pain, dry heaves and feeling miserable; currently with 2/10 burning discomfort over epigastric area which he states is tolerable. BT present and abdomen is soft. Denies dysuria, frequency or urgency with urination. Is able to move himself in bed. Instructed to call for assistance if he wants to go to the bathroom so that staff can assist him with IV pump; okay to stand at bedside to use urinal as fall risk score is low. rooming in tonight. Continues to be on heparin drip. Oriented to call light and bed controls.
--- NOTE | 2022-09-16 06:02 | P.HP_ITS ---
History of Present Illness History of Present Illness Date Patient Seen: 09/16/22 Time Patient Seen: 05:30 Chief complaint: Peptic Ulcer Flare Up Narrative: Mr. Reich is a 72M with remote smoking history, GERD, who presents to the hospital with lower chest, epigastric pain. He has known reflux, possible peptic ulcers which he occasionally takes prilosec for this. He states recently was at a [employer] and had sugary and rich foods and afterward had symptoms that were very typical of his heartburn. He had nausea, burning chest discomfort. Two days ago, on Saturday, he was especially uncomfortable, he states he tried to drink water and could not keep it down, he had significant dry heaving. He had an episode of shortness of breath a few days ago, but currently does not. He has no radiation to chest pain. It hurts with lying flat. But not exacerbated by movement, mostly just with trying to swallow something. He came in to the ED because he was told to by family members, but he states these symptoms are entirely consistent with previous heartburn/GERD exacerbations. He has never had an EGD. He has no known heart disease and has never had a stress test. In the ED workup was done, vitals notable for high blood pressure. WBC 11, Na 131, co2 21, creatinine 0.98. trop 0.174->0.147, bnp 3140. D-dimer elevated 1091. UA with trace leuk esterase, culture pending. He was given aspirin, nitro and protonix and his pain had some improvement. EKG showed no acute changes. CTA chest showed no PE. Abdominal ultrasound showed no acute process. He was started on heparin drip and admitted for further treatment. Family history: father with cad, cabg in his 40s or 50s Patient History Family & Social History Social History: household members spouse Prior Living Arrangements House Safety & Behavioral: Feels Safe in Current Yes Environment Been Physically Hurt or No Threatened By a Person Tobacco & Substance use: Tobacco type cigarettes Smoking Status Former smoker alcohol intake current alcohol intake frequency 0-2 drinks per day Substance Use Type marijuana Meds Home Medications and Allergies Home Medications Medication Instructions Recorded Confirmed Type No Known Home Medications 09/16/22 09/16/22 History Allergies Allergy/AdvReac Type Severity Reaction Status Date / Time No Known Drug Allergies Allergy Verified 09/15/22 18:14 Review of Systems Review of Systems Narrative: 14 systems reviewed and negative aside from what is noted in HPI Exam Vital Signs (past 8 hours): - 09/15/22 22:12 09/15/22 22:12 09/15/22 22:36 Temperature Pulse Rate 64 62 Respiratory Rate 11 L Blood Pressure 215/98 H 174/89 H 156/73 H Pulse Oximetry 99 Oxygen Delivery Method 09/15/22 22:52 09/15/22 22:15 09/15/22 22:15 Temperature Pulse Rate 65 62 Respiratory Rate 21 Blood Pressure 159/88 H 174/89 H Pulse Oximetry 98 Oxygen Delivery Method 09/15/22 22:30 09/15/22 22:30 09/15/22 22:38 Temperature Pulse Rate 58 L 63 Respiratory Rate 17 26 H Blood Pressure 159/83 H Pulse Oximetry 99 97 Oxygen Delivery Method 09/15/22 22:38 09/15/22 22:45 09/15/22 22:49 Temperature Pulse Rate 68 Respiratory Rate 15 Blood Pressure 158/81 H 159/88 H Pulse Oximetry 98 Oxygen Delivery Method 09/15/22 22:49 09/15/22 23:09 09/15/22 23:00 Temperature Pulse Rate 72 66 Respiratory Rate 28 H Blood Pressure 148/76 H 147/90 H Pulse Oximetry 98 Oxygen Delivery Method 09/15/22 23:00 09/15/22 23:15 09/15/22 23:26 Temperature Pulse Rate 81 64 65 Respiratory Rate 29 H 20 36 H Blood Pressure Pulse Oximetry 98 95 98 Oxygen Delivery Method 09/15/22 23:26 09/15/22 23:27 09/15/22 23:27 Temperature Pulse Rate 72 Respiratory Rate 25 H Blood Pressure 182/103 H 157/95 H Pulse Oximetry 98 Oxygen Delivery Method 09/15/22 23:30 09/15/22 23:30 09/15/22 23:45 Temperature Pulse Rate 67 62 Respiratory Rate 29 H 21 Blood Pressure 157/98 H Pulse Oximetry 97 98 Oxygen Delivery Method 09/16/22 00:00 09/16/22 00:00 09/16/22 00:15 Temperature Pulse Rate 60 73 Respiratory Rate 16 27 H Blood Pressure 154/85 H Pulse Oximetry 97 Oxygen Delivery Method 09/16/22 00:30 09/16/22 00:30 09/16/22 00:45 Temperature Pulse Rate 63 64 Respiratory Rate 17 19 Blood Pressure 148/77 H Pulse Oximetry 99 98 Oxygen Delivery Method 09/16/22 01:00 09/16/22 01:01 09/16/22 01:01 Temperature Pulse Rate 60 78 Respiratory Rate 19 39 H Blood Pressure 170/76 H Pulse Oximetry 96 98 Oxygen Delivery Method 09/16/22 03:12 09/16/22 03:44 09/16/22 03:55 Temperature 98.7 F Pulse Rate 62 65 66 Respiratory Rate 14 16 20 Blood Pressure 169/91 H 153/80 H 168/87 H Pulse Oximetry 97 98 96 Oxygen Delivery Method Room Air Room Air 09/16/22 05:04 Temperature Pulse Rate Respiratory Rate Blood Pressure Pulse Oximetry Oxygen Delivery Method Room Air Oxygen Delivery Method Room Air Narrative Exam Narrative: GEN: no acute distress HEENT: moist mucous membranes, PERRL NECK: trachea midline, no JVD PULM: clear bilaterally, no wheezes, rhonchi, rales CV: regular rate and rhythm, no murmurs ABD: soft, nontender, nondistended, no organomegaly, normal bowel sounds EXT: warm and well perfused with no edema NEURO: awake, alert, oriented, no focal deficits noted Objective Labs Result Diagrams: 09/16/22 04:18 09/16/22 04:18 Labs: Laboratory Results - last 24 hr 09/15/22 09/15/22 09/15/22 18:20 18:20 18:20 WBC 11.0 RBC 5.03 Hgb 16.4 Hct 47.4 MCV 94.1 MCH 32.5 MCHC 34.5 RDW 13.5 Plt Count 170 Neut % (Auto) 80.2 H Lymph % (Auto) 10.9 L [place] % (Auto) 8.5 Eos % (Auto) 0.1 L Baso % (Auto) 0.3 Neut # (Auto) 8900 H Lymph # (Auto) 1200 [place] # (Auto) 900 Eos # (Auto) 0 Baso # (Auto) 0 APTT D-Dimer Sodium 131 L Potassium 4.0 Chloride 99 Carbon Dioxide 21 L BUN 23 H Creatinine 0.98 Estimated GFR > 60 BUN/Creatinine Ratio 23.5 H Glucose 162 H Calcium 10.0 Total Bilirubin 1.0 AST 58 ALT 31 Alkaline Phosphatase 53 Total Creatine Kinase 635 H CK-MB (CK-2) 7.96 H CK-MB (CK-2) Rel Index 1.3 L Troponin I 0.174 H* NT-Pro-B Natriuret Pep Total Protein 8.2 Albumin 4.5 Globulin 3.7 Albumin/Globulin Ratio 1.2 Lipase 34 Urine Color Urine Appearance Urine pH Ur Specific [place] Urine Protein Urine Glucose (UA) Urine Ketones Urine Occult Blood Urine Nitrate Urine Bilirubin Urine Urobilinogen Ur Leukocyte Esterase Urine RBC Urine WBC Ur Squamous Epith Cells Urine Bacteria Ur Culture Indicated? SARS-CoV-2 (PCR) 09/15/22 09/15/22 09/15/22 18:20 18:20 21:10 WBC RBC Hgb Hct MCV MCH MCHC RDW Plt Count Neut % (Auto) Lymph % (Auto) [place] % (Auto) Eos % (Auto) Baso % (Auto) Neut # (Auto) Lymph # (Auto) [place] # (Auto) Eos # (Auto) Baso # (Auto) APTT D-Dimer 1091 H Sodium Potassium Chloride Carbon Dioxide BUN Creatinine Estimated GFR BUN/Creatinine Ratio Glucose Calcium Total Bilirubin AST ALT Alkaline Phosphatase Total Creatine Kinase CK-MB (CK-2) CK-MB (CK-2) Rel Index Troponin I NT-Pro-B Natriuret Pep 3140 H Total Protein Albumin Globulin Albumin/Globulin Ratio Lipase Urine Color Yellow Urine Appearance Clear Urine pH 5.5 Ur Specific [place] 1.010 Urine Protein 1+ H Urine Glucose (UA) Negative Urine Ketones Trace H Urine Occult Blood 2+ H Urine Nitrate Negative Urine Bilirubin Negative Urine Urobilinogen 0.2 Ur Leukocyte Esterase Trace H Urine RBC 0-1/hpf Urine WBC 1-5/hpf Ur Squamous Epith Cells 0-1 /hpf Urine Bacteria None seen Ur Culture Indicated? Specimen cultured SARS-CoV-2 (PCR) 09/15/22 09/15/22 09/15/22 21:11 22:21 22:21 WBC RBC Hgb Hct MCV MCH MCHC RDW Plt Count Neut % (Auto) Lymph % (Auto) [place] % (Auto) Eos % (Auto) Baso % (Auto) Neut # (Auto) Lymph # (Auto) [place] # (Auto) Eos # (Auto) Baso # (Auto) APTT 27 D-Dimer Sodium Potassium Chloride Carbon Dioxide BUN Creatinine Estimated GFR BUN/Creatinine Ratio Glucose Calcium Total Bilirubin AST ALT Alkaline Phosphatase Total Creatine Kinase 611 H CK-MB (CK-2) 7.47 H CK-MB (CK-2) Rel Index 1.2 L Troponin I 0.147 H* NT-Pro-B Natriuret Pep Total Protein Albumin Globulin Albumin/Globulin Ratio Lipase Urine Color Urine Appearance Urine pH Ur Specific [place] Urine Protein Urine Glucose (UA) Urine Ketones Urine Occult Blood Urine Nitrate Urine Bilirubin Urine Urobilinogen Ur Leukocyte Esterase Urine RBC Urine WBC Ur Squamous Epith Cells Urine Bacteria Ur Culture Indicated? SARS-CoV-2 (PCR) Negative 09/16/22 09/16/22 09/16/22 04:18 04:18 04:18 WBC 8.0 RBC 4.70 Hgb 15.2 Hct 44.1 MCV 93.8 MCH 32.3 MCHC 34.4 RDW 13.5 Plt Count 140 L Neut % (Auto) 73.2 Lymph % (Auto) 16.7 L [place] % (Auto) 9.0 Eos % (Auto) 0.2 L Baso % (Auto) 0.9 Neut # (Auto) 5900 Lymph # (Auto) 1300 [place] # (Auto) 700 Eos # (Auto) 0 Baso # (Auto) 100 APTT 72 H D D-Dimer Sodium 135 L Potassium 3.9 Chloride 102 Carbon Dioxide 27 BUN 21 H Creatinine 1.13 Estimated GFR > 60 BUN/Creatinine Ratio 18.6 Glucose 131 H Calcium 8.8 Total Bilirubin AST ALT Alkaline Phosphatase Total Creatine Kinase CK-MB (CK-2) CK-MB (CK-2) Rel Index Troponin I 0.129 H* NT-Pro-B Natriuret Pep Total Protein Albumin Globulin Albumin/Globulin Ratio Lipase Urine Color Urine Appearance Urine pH Ur Specific [place] Urine Protein Urine Glucose (UA) Urine Ketones Urine Occult Blood Urine Nitrate Urine Bilirubin Urine Urobilinogen Ur Leukocyte Esterase Urine RBC Urine WBC Ur Squamous Epith Cells Urine Bacteria Ur Culture Indicated? SARS-CoV-2 (PCR) Assessment & Plan Assessment & Plan narrative: 1. Acute NSTEMI -description of symptoms and chest pain sound much more consistent with GI process -possible that retching and vomiting was enough stress to cause demand ischemia -trending troponins have shown decrease -EKG with no acute ischemic changes -continue aspirin, statin, and heparin gtt for now -cardiology recommended echo and possible stress test -ECHO ordered, pending result may determine if stress needed 2. GERD -ordered pantoprazole 3. Elevated blood pressure -possibly secondary to discomfort -needs follow up as outpatient to consider starting anti-hypertensives if continues to be elevated Patient will be made inpatient. He will need ECHO to show if any indication of wall motion abnormalities. He may need stress test pending this results and possibly cardiac cath given nstemi. CODE: Full Proxy: Michelle Reich I have utilized all available resources to reconcile the patient's home medications Time Spent With Patient Critical Care time: I spent a total of [] minutes of critical care time on this patient's care today; this time is exclusive of procedural time.
[2022-09-16] MEDS: PANTOPRAZOLE DR 40 MG TABLET PO (06:38)
[2022-09-16] MEDS: ASPIRIN EC 81 MG TABLET PO (09:11)
--- NOTE | 2022-09-16 09:22 | CM.DANOTE ---
DCP: Case received, EMR reviewed and met with patient. Spouse, Michelle, was at bedside. Introduced self and role. Was able to complete DCP assessment based upon information currently available. Patient is a 72 year old male who admitted early this morning to the care of the hospitalist team. PCP: Magdi Elizabeth, formerly, Dr Tsang. Payer: confirmed: [employer]. Patient came to the hospital via private vehicle secondary to having epigastric pain and nausea. Notes indicate that patient and spouse had a holiday green party, symptoms started aftermath, concern about consuming too many rich foods. Notes also indicate that case was discussed with cardiology, and will be having an echo, possible stress test. Patient does have history of reflux, peptic ulcers. Patient holds diagnosis of acute NSTEMI. Met with patient and spouse in his room. Both are pleasant. Patient is alert and oriented, attempted to eat some of his breakfast. They both reside in [place]. Patient is independent at his baseline. Asked him if he was assigned a new primary care provider since Dr. Tsang retired. He stated, he was not impressed by him, had only seen him once, he did have a provider at [facility], but is far. He indicated that he has not seen a provider since Dr. Tsang, around 2019. He did ask about other providers in the area. Did let him know that [facility] physicians do have some openings, would need to call and confirm that they accept his insurance. P: DCP to continue to follow for needs. He will have some tests today. Patient should be able to go home when deemed medically stable. Rosaura Cruz RN/Client Strategist Discharge Planning/Care Management CM Discharge Assessment Start: 09/16/22 09:21 Freq: Status: Active Protocol: Document 09/16/22 09:21 (Rec: 09/16/22 09:21 [id number]) Discharge Planning Assessment Assigned Director Of Distance Learning Rosaura Cruz RN/Client Strategist Advance Directives? No History Provided By Patient,Medical Record Prior Living Arrangements House Household Members spouse Type of transporation used prior to Drives own vehicle admit Independent with ADL's Yes Is patient alert and oriented? Yes Caregiver for Another No Barriers to Discharge No Discharge Plan Home Transportation Arrangement Spouse Referrals Initiated None needed Whiteboard Updated in Patient Room with Yes name and ext. # of Director Of Distance Learning Review Status In Process Next Review Type Continued Stay Review
[2022-09-16] MEDS: MAG HYDROX/ALUM/SIMETH 30 ML UDC PO (11:40)
[2022-09-16 12:18] LABS: PTT Partial Thromboplastin Tim 53 SECONDS (26-36)
[2022-09-16 14:20] LABS: Hemoglobin A1C% w Est Avg Glu 6.3 % (4.0-6.0)
[2022-09-16 14:29] LABS: Cholesterol 178 mg/dL (140-199); HDL Cholesterol 67 mg/dL (40-60); LDL Cholesterol Calculated 83 mg/dL (<100); Triglycerides 141 mg/dL (35-150)
--- NOTE | 2022-09-16 15:38 | PC.NURSE ---
Day shift: Paperwork signed and all questions answered. Left unit via WC at approx 1540. Spouse in room for teachings. Dr Arciniega told Pt he is pre-diabetic. scripts sent electronic to Pt's pharmacy. ROXI Phipps helped Pt to car.
--- NOTE | 2022-09-16 20:00 | PM.DS.1 ---
History of Present Illness History of Present Illness Chief complaint: Peptic Ulcer Flare Up Narrative: Per history and physical: ?72M with remote smoking history, GERD, who presents to the hospital with lower chest, epigastric pain. He has known reflux, possible peptic ulcers which he occasionally takes prilosec for this. He states recently was at a libertarian and had sugary and rich foods and afterward had symptoms that were very typical of his heartburn. He had nausea, burning chest discomfort. Two days ago, on Saturday, he was especially uncomfortable, he states he tried to drink water and could not keep it down, he had significant dry heaving. He had an episode of shortness of breath a few days ago, but currently does not. He has no radiation to chest pain. It hurts with lying flat. But not exacerbated by movement, mostly just with trying to swallow something. He came in to the ED because he was told to by family members, but he states these symptoms are entirely consistent with previous heartburn/GERD exacerbations. He has never had an EGD. He has no known heart disease and has never had a stress test. In the ED workup was done, vitals notable for high blood pressure. WBC 11, Na 131, co2 21, creatinine 0.98. trop 0.174->0.147, bnp 3140. D-dimer elevated 1091. UA with trace leuk esterase, culture pending. He was given aspirin, nitro and protonix and his pain had some improvement.? EKG showed no acute changes. CTA chest showed no PE. Abdominal ultrasound showed no acute process. He was started on heparin drip and admitted for further treatment. Family history: father with cad, cabg in his 40s or 50s Discharge Providers Provider Date of admission: 09/16/22 02:54 Discharge Date: 09/16/22 Primary care physician: Serafin Tsang MD Discharge provider: Liz Hinkle MD Summary Hospital Course Discharge Diagnosis: 1. Acute NSTEMI 2. GERD 3. Elevated blood pressure new line 4. Prediabetes with hemoglobin A1c of 6.3% Hospital Course: Please see history and physical for full details. In brief, patient has chronic gastroesophageal reflux disease which has not been well controlled. He has monthly episodes of exacerbations of dyspepsia, odynophagia, and reflux symptoms. Typically they resolve with treatment inclusive of Tums and Prilosec. However, the current episode did not improve after Prilosec. He also had nausea and vomiting. He presented to the emergency department and was found to have a slightly elevated troponin. He had no anginal symptoms. However given his history of borderline hypertension and family history he was admitted for further evaluation. Echocardiogram was done which showed no wall motion abnormalities. Troponins were trending down. We discussed options inclusive of remaining in the hospital for 1 additional day for a cardiac stress test versus discharging home with outpatient follow-up. He elected outpatient follow-up and discharge. Is encouraged to follow-up with gastroenterology for consideration of an EGD. Previous history of an upper GI bleed. He states he was never scoped. Does complain of a single area in his esophagus that is painful with each swallow. He will be placed empirically on Protonix and Carafate. He will continue aspirin low-dose for now. Would recommend close follow-up as he does have prediabetes, borderline hypertension, and family history. He likely will need an outpatient stress test. Status at Discharge Cognitive/behavioral status at discharge: at baseline, oriented Functional status at discharge: independent ambulation Overall status at discharge: patient is back to baseline Exam Vital Signs (past 8 hours): Oxygen Delivery Method Room Air Oxygen Flow Rate 0 Narrative Exam Narrative: GEN: Alert and oriented x 3, NAD HEENT:NC, Face symmetric CHEST: Respiratory excursions symmetric, CTAB CV: RRR, no M/R/G ABD: Soft, NT/ND, BT present in all 4 quadrants, no organomegaly or masses EXTR: warm, well perfused, no C/C/E SKIN: warm and dry, no rash NEURO: Alert and oriented x 3, nonfocal Objective Labs Result Diagrams: 09/16/22 04:18 09/16/22 04:18 Labs: Laboratory Results - last 24 hr 09/15/22 09/15/22 09/15/22 18:20 18:20 18:20 WBC RBC Hgb Hct MCV MCH MCHC RDW Plt Count Neut % (Auto) Lymph % (Auto) [place] % (Auto) Eos % (Auto) Baso % (Auto) Neut # (Auto) Lymph # (Auto) [place] # (Auto) Eos # (Auto) Baso # (Auto) APTT D-Dimer 1091 H Sodium Potassium Chloride Carbon Dioxide BUN Creatinine Estimated GFR BUN/Creatinine Ratio Glucose Hemoglobin A1c Calcium Total Creatine Kinase 635 H CK-MB (CK-2) 7.96 H CK-MB (CK-2) Rel Index 1.3 L Troponin I 0.174 H* NT-Pro-B Natriuret Pep 3140 H Triglycerides Cholesterol LDL Cholesterol, Calc HDL Cholesterol Urine Color Urine Appearance Urine pH Ur Specific [place] Urine Protein Urine Glucose (UA) Urine Ketones Urine Occult Blood Urine Nitrate Urine Bilirubin Urine Urobilinogen Ur Leukocyte Esterase Urine RBC Urine WBC Ur Squamous Epith Cells Urine Bacteria Ur Culture Indicated? SARS-CoV-2 (PCR) 09/15/22 09/15/22 09/15/22 21:10 21:11 22:21 WBC RBC Hgb Hct MCV MCH MCHC RDW Plt Count Neut % (Auto) Lymph % (Auto) [place] % (Auto) Eos % (Auto) Baso % (Auto) Neut # (Auto) Lymph # (Auto) [place] # (Auto) Eos # (Auto) Baso # (Auto) APTT D-Dimer Sodium Potassium Chloride Carbon Dioxide BUN Creatinine Estimated GFR BUN/Creatinine Ratio Glucose Hemoglobin A1c Calcium Total Creatine Kinase 611 H CK-MB (CK-2) 7.47 H CK-MB (CK-2) Rel Index 1.2 L Troponin I 0.147 H* NT-Pro-B Natriuret Pep Triglycerides Cholesterol LDL Cholesterol, Calc HDL Cholesterol Urine Color Yellow Urine Appearance Clear Urine pH 5.5 Ur Specific [place] 1.010 Urine Protein 1+ H Urine Glucose (UA) Negative Urine Ketones Trace H Urine Occult Blood 2+ H Urine Nitrate Negative Urine Bilirubin Negative Urine Urobilinogen 0.2 Ur Leukocyte Esterase Trace H Urine RBC 0-1/hpf Urine WBC 1-5/hpf Ur Squamous Epith Cells 0-1 /hpf Urine Bacteria None seen Ur Culture Indicated? Specimen cultured SARS-CoV-2 (PCR) Negative 09/15/22 09/16/22 09/16/22 22:21 04:18 04:18 WBC 8.0 RBC 4.70 Hgb 15.2 Hct 44.1 MCV 93.8 MCH 32.3 MCHC 34.4 RDW 13.5 Plt Count 140 L Neut % (Auto) 73.2 Lymph % (Auto) 16.7 L [place] % (Auto) 9.0 Eos % (Auto) 0.2 L Baso % (Auto) 0.9 Neut # (Auto) 5900 Lymph # (Auto) 1300 [place] # (Auto) 700 Eos # (Auto) 0 Baso # (Auto) 100 APTT 27 72 H D D-Dimer Sodium Potassium Chloride Carbon Dioxide BUN Creatinine Estimated GFR BUN/Creatinine Ratio Glucose Hemoglobin A1c Calcium Total Creatine Kinase CK-MB (CK-2) CK-MB (CK-2) Rel Index Troponin I NT-Pro-B Natriuret Pep Triglycerides Cholesterol LDL Cholesterol, Calc HDL Cholesterol Urine Color Urine Appearance Urine pH Ur Specific [place] Urine Protein Urine Glucose (UA) Urine Ketones Urine Occult Blood Urine Nitrate Urine Bilirubin Urine Urobilinogen Ur Leukocyte Esterase Urine RBC Urine WBC Ur Squamous Epith Cells Urine Bacteria Ur Culture Indicated? SARS-CoV-2 (PCR) 09/16/22 09/16/22 09/16/22 04:18 11:54 11:54 WBC RBC Hgb Hct MCV MCH MCHC RDW Plt Count Neut % (Auto) Lymph % (Auto) [place] % (Auto) Eos % (Auto) Baso % (Auto) Neut # (Auto) Lymph # (Auto) [place] # (Auto) Eos # (Auto) Baso # (Auto) APTT 53 H D D-Dimer Sodium 135 L Potassium 3.9 Chloride 102 Carbon Dioxide 27 BUN 21 H Creatinine 1.13 Estimated GFR > 60 BUN/Creatinine Ratio 18.6 Glucose 131 H Hemoglobin A1c 6.3 H Calcium 8.8 Total Creatine Kinase CK-MB (CK-2) CK-MB (CK-2) Rel Index Troponin I 0.129 H* NT-Pro-B Natriuret Pep Triglycerides Cholesterol LDL Cholesterol, Calc HDL Cholesterol Urine Color Urine Appearance Urine pH Ur Specific [place] Urine Protein Urine Glucose (UA) Urine Ketones Urine Occult Blood Urine Nitrate Urine Bilirubin Urine Urobilinogen Ur Leukocyte Esterase Urine RBC Urine WBC Ur Squamous Epith Cells Urine Bacteria Ur Culture Indicated? SARS-CoV-2 (PCR) 09/16/22 11:54 WBC RBC Hgb Hct MCV MCH MCHC RDW Plt Count Neut % (Auto) Lymph % (Auto) [place] % (Auto) Eos % (Auto) Baso % (Auto) Neut # (Auto) Lymph # (Auto) [place] # (Auto) Eos # (Auto) Baso # (Auto) APTT D-Dimer Sodium Potassium Chloride Carbon Dioxide BUN Creatinine Estimated GFR BUN/Creatinine Ratio Glucose Hemoglobin A1c Calcium Total Creatine Kinase CK-MB (CK-2) CK-MB (CK-2) Rel Index Troponin I NT-Pro-B Natriuret Pep Triglycerides 141 Cholesterol 178 LDL Cholesterol, Calc 83 HDL Cholesterol 67 H Urine Color Urine Appearance Urine pH Ur Specific [place] Urine Protein Urine Glucose (UA) Urine Ketones Urine Occult Blood Urine Nitrate Urine Bilirubin Urine Urobilinogen Ur Leukocyte Esterase Urine RBC Urine WBC Ur Squamous Epith Cells Urine Bacteria Ur Culture Indicated? SARS-CoV-2 (PCR) PFSH Social History household members: spouse Smoking Status: Former smoker alcohol intake: current Discharge Plan Discharge Plan Patient Disposition: Home Provider Discharge Comment: Take protonix daily for acid reflux. Avoid large meals/large volumes of fluids. Do not eat or drink within 3 hours of bedtime. Elevate the head of your bed. Abstain from alcohol. Take carafate for the next several days to help relieve your symptoms. Recommend: Contact [facility] to get scheduled for an EGD (endoscopy). (Recommend: Dr. Yanez, but can see any physician). Your cholesterol is great. You are prediabetic. Your Hemoglobin A1C is 6.3%. Please start a controlled carbohydrate diet (look online for good ideas). Please get a new PCP and follow-up. Discharge orders & Medications Prescriptions: New aspirin 81 mg Tablet,Delayed Release (Dr/Ec) 81 mg PO DAILY Qty: 30 0RF pantoprazole 40 mg Tablet,Delayed Release (Dr/Ec) 40 mg PO 0700 Qty: 30 0RF sucralfate [Carafate] 100 mg/mL suspension 10 ml PO QACHS Qty: 200 0RF Follow up/Referrals: Serafin Tsang MD [Primary Care Provider] - Diet/Activity/Treatments Diet: Diet as Tolerated Diet comment: Heart healthy Activity: As tolerated Oxygen: N/A Visit Report/Discharge Packet Instructions: Cardiac Troponin, Echocardiogram, DI for Gastroesophageal Reflux Disease (GERD) Discharge Data Primary Care Provider: Serafin Tsang
== END 2022-09-16 15:40 | disposition home or self-care (01) | DRG 282 ==
LOC: ED 22:31 → AC 09-16 02:55
PROVIDERS: Family Medicine; Admitting Provider Internal Medicine; Emergency Provider Emergency Medicine; PCP Internal Medicine; Referring Provider Emergency Medicine; Visit Provider Internal Medicine
DX: I21.4 Non-ST elevation (NSTEMI) myocardial infarction (principal); K21.9 Gastro-esophageal reflux disease without esophagitis; I10 Essential (primary) hypertension; R73.03 Prediabetes; Z87.891 Personal history of nicotine dependence; Z20.822 Contact with and (suspected) exposure to COVID-19
CPT/HCPCS: 36415; 71275; 76705; 80048; 80053; 80061; 81001; 82550; 82553; 83036; 83690; 83880; 84484; 85025; 85379; 85730; 87086; 87635; 93005; 93306; 96374; 96375; 96376; 99284; 99285; C9803; C9113; J1644; J2405; Q9967

== ENCOUNTER 2022-12-13 07:19 | Emergency (ER) | payer OTHER, SELFPAY ==
[2022-09-16 04:05] VITALS: BMI 29.5
[2022-12-13 07:20] VITALS: BP 167/89; PULSE 127; RESP 18; TEMP 36.6; O2SAT 98; BMI 30.5
--- NOTE | 2022-12-13 07:28 | DI.RAD.S_ITS ---
PROCEDURE: XR CHEST 1V INDICATIONS: chest pain TECHNIQUE: One view of the chest was acquired. COMPARISON: None. FINDINGS: Surgical changes and devices: None. Lungs and pleura: Lungs are clear. No pleural effusions or pneumothorax. Mediastinum: Mediastinal contours appear normal. Heart size is normal. Bones and chest wall: No suspicious bony lesions. Overlying soft tissues appear unremarkable. IMPRESSION: No acute cardiopulmonary abnormality. Dictated by: Teddy Marcelino M.D. on 12/13/2022 at 8:22 Approved by: Teddy Marcelino M.D. on 12/13/2022 at 8:24
[2022-12-13 07:46] LABS: Add Manual Diff / Slide Review NO; Basophils Absolute Auto 200 /uL (0-100); Basophils Percent Auto 3.9 % (0-2); Eosinophils Absolute Auto 400 /uL (0-450); Eosinophils Percent Auto 7.8 % (2-4); Hematocrit 47.9 % (41-53); Hemoglobin 15.9 g/dL (13.5-17.5); Lymphocytes Absolute Auto 900 /uL (1100-4500); Lymphocytes Percent Auto 18.7 % (25-40); Mean Corpuscular HGB Conc 33.2 % (30-36); Mean Corpuscular Hemoglobin 31.5 PG (26-34); Mean Corpuscular Volume 94.7 fL (80-100); Monocytes Absolute Auto 400 /uL (0-900); Neutrophils Absolute Auto 2800 /uL (1500-7000); Neutrophils Percent Auto 60.6 % (50-75); Platelet Count 135 X10^3/uL (150-400); Red Blood Cell Count 5.06 X10^6/uL (4.5-5.9); Red Cell Distribution Width 13.9 % (11.6-14.8); White Blood Cell Count 4.6 X10^3/uL (4.5-11.0)
[2022-12-13 07:47] LABS: COVID19 -Nasal RAPID Negative (Negative)
--- NOTE | 2022-12-13 07:50 | ED_ITS ---
HPI - Arrhythmia/Palpitations General Chief Complaint: Arrhythmia/Palpitations Stated Complaint: heart rate 135, high BP Time Seen by Provider: 12/13/22 07:50 Source: patient Mode of arrival: Ambulatory Limitations: no limitations History of Present Illness HPI narrative: This is a 72-year-old male with history of GERD, prior NSTEMI, prediabetes who presents with complaint of feeling some left upper chest discomfort the last about 20 minutes he realized that his heart rhythm felt funny and it was fast and irregular he states it is improved at this time and at bedside his heart rate is 60s. Patient states that he did not feel short of breath he felt lightheaded earlier today but not currently. He denies any diaphoresis. No nausea or vomiting. No swelling of his extremities. He states he was urinating a little bit more this morning. Patient states he has not had similar symptoms in the past. He does have a history of GERD he states he takes pantoprazole he denies cardiac history but then states he was here in September had a peptic ulcer states he had positive troponin, had a negative nuclear med scan and echo and his notes states that he did have an NSTEMI with positive troponins. Patient did not have a stress test at any point. He is also had an EGD and colonoscopy and hemorrhoid surgery in the past. No tobacco, he does use THC. He states he was drinking several alcoholic drinks daily but has stopped as his blood sugars were elevated he drinks 1 a day sometimes just 2 or 3 times a week. Does note his dad had a three-vessel CABG in his 50s or 60s but states that he drank dumont grease daily, he states his sisters do not have any cardiac history he denies any cardiac history for his brother but his brother has . Related Data Previous Rx's Medication Instructions Recorded aspirin 81 mg tablet,delayed 81 mg PO DAILY #30 tabs 09/16/22 release pantoprazole 40 mg tablet,delayed 40 mg PO 0700 #30 tabs 09/16/22 release sucralfate 100 mg/mL oral 10 ml PO QACHS #200 mL 09/16/22 suspension (Carafate) Allergies Allergy/AdvReac Type Severity Reaction Status Date / Time No Known Drug Allergies Allergy Verified 09/15/22 18:14 Review of Systems Review of Systems ROS Unobtainable: All systems reviewed & are unremarkable except as noted in HPI and below Patient History Social History household members: spouse Smoking Status: Former smoker alcohol intake: current Smoking Status: Former smoker alcohol intake frequency: 0-2 drinks per day Substance Use Type: marijuana Exam Narrative Exam Narrative: GENERAL: Alert and oriented x three, well-appearing male in mild distress. Patient ambulated to the room without issue. HEENT: Head normocephalic, atraumatic, EOMI, pupils reactive, face symmetric, moist mucous membranes NECK: Supple, full range of motion CARDIOVASCULAR: Regular rate and rhythm without murmurs, rubs or gallops. No JVD. No swelling bilateral lower extremities. Patient heart rate is in the 50s to 60s at this time RESPIRATORY: Breath sounds equal bilaterally, no wheezes rales or rhonchi. ABDOMEN: Soft, nontender. Normoactive bowel sounds all 4 quadrants. No guardin g or rebound, rigidity, no mass : No CVA tenderness EXTREMITIES: Normal range of motion, no clubbing or edema. Neurovascularly intact NEUROLOGICAL: Cranial nerves II through XII grossly intact. Moving all extremities. Normal gait. SKIN: Warm, dry, no petechiae, no rashes or lesions. Initial Vital Signs Initial Vital Signs: Vital Signs Temperature 98 F 12/13/22 07:20 Pulse Rate 127 H 12/13/22 07:20 Respiratory Rate 18 12/13/22 07:20 Blood Pressure 167/89 H 12/13/22 07:20 Pulse Oximetry 98 12/13/22 07:20 Oxygen Delivery Method Room Air 12/13/22 07:20 Course Orders Ordered: Discontinued Medications Aspirin (Aspirin 81 Mg Chew Tab) 324 mg PO NOW ONE Stop: 12/13/22 07:29 Last Admin: 12/13/22 09:48 Dose: Not Given Documented By: RLS Vital Signs Vital signs: Vital Signs - 8 hr 12/13/22 07:20 Temperature 98 F Pulse Rate 127 H Respiratory Rate 18 Blood Pressure 167/89 H Pulse Oximetry 98 Oxygen Delivery Method Room Air MDM - Arrhythmia/Palpitations Lab Data 12/13/22 07:35 12/13/22 07:35 Labs: Lab Results 12/13/22 12/13/22 12/13/22 Range/Units 07:26 07:35 07:35 WBC 4.6 (4.5-11.0) X10^3/uL RBC 5.06 (4.5-5.9) X10^6/uL Hgb 15.9 (13.5-17.5) g/dL Hct 47.9 (41-53) % MCV 94.7 (80-100) fL MCH 31.5 (26-34) PG MCHC 33.2 (30-36) % RDW 13.9 (11.6-14.8) % Plt Count 135 L (150-400) X10^3/uL Neut % (Auto) 60.6 (50-75) % Lymph % (Auto) 18.7 L (25-40) % [place] % (Auto) 9.0 (3-14) % Eos % (Auto) 7.8 H (2-4) % Baso % (Auto) 3.9 H (0-2) % Neut # (Auto) 2800 (8380-1635) /uL Lymph # (Auto) 900 L (9279-2951) /uL [place] # (Auto) 400 (0-900) /uL Eos # (Auto) 400 (0-450) /uL Baso # (Auto) 200 H (0-100) /uL PT (10.1-12.7) SECONDS INR (0.9-1.3) APTT (26-36) SECONDS Sodium 143 (137-145) mmol/L Potassium 4.6 (3.4-5.1) mmol/L Chloride 104 (98-107) mmol/L Carbon Dioxide 29 (22-32) mmol/L BUN 16 (9-20) mg/dL Creatinine 0.87 (0.66-1.25) mg/dL Estimated GFR > 60 (>60) mL/min BUN/Creatinine Ratio 18.4 (6-22) Glucose 154 H (80-110) mg/dL Calcium 9.2 (8.4-10.2) mg/dL Magnesium 2.1 (1.6-2.3) mg/dL Total Bilirubin 0.8 (0.2-1.3) mg/dL AST 41 (17-59) IU/L ALT 26 (<50) IU/L Alkaline Phosphatase 52 (38-126) U/L Total Creatine Kinase 165 (55-170) U/L CK-MB (CK-2) 2.05 (<2.37) ng/mL CK-MB (CK-2) Rel Index 1.2 L (1.5-5.0) % Troponin I < 0.012 (0.01-0.034) ng/mL NT-Pro-B Natriuret Pep (<125) pg/mL Total Protein 8.1 (6.3-8.2) g/dL Albumin 4.5 (3.5-5.0) g/dL Globulin 3.6 (1.7-4.1) g/dL Albumin/Globulin Ratio 1.3 (1.0-2.8) Lipase 41 (23-300) U/L SARS-CoV-2 (PCR) Negative (Negative) 12/13/22 12/13/22 12/13/22 Range/Units 07:35 07:41 09:32 WBC (4.5-11.0) X10^3/uL RBC (4.5-5.9) X10^6/uL Hgb (13.5-17.5) g/dL Hct (41-53) % MCV (80-100) fL MCH (26-34) PG MCHC (30-36) % RDW (11.6-14.8) % Plt Count (150-400) X10^3/uL Neut % (Auto) (50-75) % Lymph % (Auto) (25-40) % [place] % (Auto) (3-14) % Eos % (Auto) (2-4) % Baso % (Auto) (0-2) % Neut # (Auto) (2854-0081) /uL Lymph # (Auto) (3613-2771) /uL [place] # (Auto) (0-900) /uL Eos # (Auto) (0-450) /uL Baso # (Auto) (0-100) /uL PT 10.8 (10.1-12.7) SECONDS INR 0.9 (0.9-1.3) APTT 32 (26-36) SECONDS Sodium (137-145) mmol/L Potassium (3.4-5.1) mmol/L Chloride (98-107) mmol/L Carbon Dioxide (22-32) mmol/L BUN (9-20) mg/dL Creatinine (0.66-1.25) mg/dL Estimated GFR (>60) mL/min BUN/Creatinine Ratio (6-22) Glucose (80-110) mg/dL Calcium (8.4-10.2) mg/dL Magnesium (1.6-2.3) mg/dL Total Bilirubin (0.2-1.3) mg/dL AST (17-59) IU/L ALT (<50) IU/L Alkaline Phosphatase (38-126) U/L Total Creatine Kinase (55-170) U/L CK-MB (CK-2) (<2.37) ng/mL CK-MB (CK-2) Rel Index (1.5-5.0) % Troponin I < 0.012 (0.01-0.034) ng/mL NT-Pro-B Natriuret Pep 550 H (<125) pg/mL Total Protein (6.3-8.2) g/dL Albumin (3.5-5.0) g/dL Globulin (1.7-4.1) g/dL Albumin/Globulin Ratio (1.0-2.8) Lipase (23-300) U/L SARS-CoV-2 (PCR) (Negative) Urine Dip Bedside Urine Glucose Negative Bedside Urine Bilirubin - Negative Bedside Urine Ketone - Negative Urine Specific [place] 1.010 Bedside Urine Occult Blood +/- Bedside Urine pH 6.0 Bedside Urine Protein - Negative Bedside Urine Urobilinogen - Negative Bedside Urine Nitrite - Negative Bedside Urine Leukocytes - Negative Esterase Imaging Data Chest x-ray: Radiologist's Impresson: [address] [address] XRay Report Signed Patient: Jeffry Reich V MR#: [id number] : 1950 Acct:[id number] Age/Sex: 72 / M Date of Service: 12/13/22 Loc: ED Accession Number: [id number] ?? Procedure: XR chest 1V Ordering Provider: Ermelinda Burns D.O. PROCEDURE:? XR CHEST 1V ? INDICATIONS:? chest pain ? TECHNIQUE:? One view of the chest was acquired.? ? COMPARISON:? None. ? FINDINGS:? ? Surgical changes and devices:? None.? ? Lungs and pleura:? Lungs are clear.? No pleural effusions or pneumothorax.? ? Mediastinum:? Mediastinal contours appear normal.? Heart size is normal.? ? Bones and chest wall:? No suspicious bony lesions.? Overlying soft tissues appear unremarkable.? ? IMPRESSION:? No acute cardiopulmonary abnormality. ? ? Dictated by: Teddy Marcelino M.D. on 12/13/2022 at 8:22 ? ? Approved by: Teddy Marcelino M.D. on 12/13/2022 at 8:24?? ECG Data Attestation: I personally reviewed and interpreted this ECG as follows: Prior ECG tracings: available for review Interpretation: EKG shows appears to be an accelerated junctional rhythm rate of 126 QRS of 96 and QTC of 495. Patient does have occasional P waves but not consistently actually quite regular. Patient has prior from 09/15/2022 was sinus bradycardia with sinus arrhythmia does not show ST segment changes. EKG 2. Sinus bradycardia rate of 55 MD 194 QRS of 100 QTC of 419. No acute ST she elevation or depression appreciated. Left axis deviation. Patient's EKG appears similar to prior from 09/15/[address] segments. MDM Narrative Medical decision making narrative: 72-year-old male with history of NSTEMI on pantoprazole and prediabetes presents with elevated heart rate does appear to have a junctional rhythm, labs including CBC, CMP, troponin electrolytes and chest x-ray were ordered. Patient had repeat EKG ordered as patient heart rate improved into the 50s and 60s suspect he cardioverted. Patient does not have a rising troponin. He has not had any additional symptoms. Discussed he needs to follow up with primary care, would recommend an aspirin daily he states he talked to Cardiology but in light of his new change I would recommend this and follow-up for further evaluation. Discharge Plan Departure Patient Disposition: Home Clinical Impression: Accelerated atrioventricular junctional rhythm Instructions: DI for Arrhythmias Activity Restrictions/Additional Instructions: Follow-up with your physician for recheck, I would recommend follow-up with them and/or Cardiology. They may start you on a medication such as beta-morteza if you have recurrent episodes and blood thinner for stroke prevention I would recommend continuing aspirin 81 mg daily you do have some cardiac risk factors. Please return for recurrent symptoms, new chest pain, shortness of breath, passing out, persistent fast irregular heartbeat, nausea vomiting, swelling of extremities or other new or concerning changes. Prescriptions: No Action aspirin 81 mg Tablet,Delayed Release (Dr/Ec) 81 mg PO DAILY Qty: 30 0RF pantoprazole 40 mg Tablet,Delayed Release (Dr/Ec) 40 mg PO 0700 Qty: 30 0RF sucralfate [Carafate] 100 mg/mL suspension 10 ml PO QACHS Qty: 200 0RF Referrals: Bucky Gamino MD [Primary Care Provider] - Stand Alone Forms: Patient Portal/API
[2022-12-13 07:53] LABS: INR 0.9 (0.9-1.3); Prothrombin Time 10.8 SECONDS (10.1-12.7)
[2022-12-13 07:56] LABS: PTT Partial Thromboplastin Tim 32 SECONDS (26-36)
[2022-12-13 08:06] LABS: Alanine Aminotransferase 26 IU/L (<50); Albumin 4.5 g/dL (3.5-5.0); Albumin Globulin Ratio 1.3 (1.0-2.8); Alkaline Phosphatase 52 U/L (38-126); Aspartate Aminotransferase 41 IU/L (17-59); BUN Creatinine Ratio 18.4 (6-22); Bilirubin Total 0.8 mg/dL (0.2-1.3); Blood Urea Nitrogen 16 mg/dL (9-20); Calcium 9.2 mg/dL (8.4-10.2); Carbon Dioxide 29 mmol/L (22-32); Chloride 104 mmol/L (98-107); Creatine Kinase 165 U/L (55-170); Estimated Glomerular Filt Rate > 60 mL/min (>60); Globulin 3.6 g/dL (1.7-4.1); Glucose 154 mg/dL (80-110); HEMOLYSIS < 15 (0-50); Lipase 41 U/L (23-300); Magnesium 2.1 mg/dL (1.6-2.3); Potassium 4.6 mmol/L (3.4-5.1); Sodium 143 mmol/L (137-145); Total Protein 8.1 g/dL (6.3-8.2)
[2022-12-13 08:14] LABS: NT-proBNP (BNP-Adult 18+) 550 pg/mL (<125)
[2022-12-13 08:17] LABS: Troponin I < 0.012 ng/mL (0.01-0.034)
[2022-12-13 08:20] LABS: CKMB % Relative Index 1.2 % (1.5-5.0); Creatine Kinase MB 2.05 ng/mL (<2.37)
[2022-12-13 09:29] VITALS: PULSE 53; RESP 21; O2SAT 99
[2022-12-13 09:30] VITALS: BP 161/85; PULSE 55; RESP 14; O2SAT 99
[2022-12-13 10:00] VITALS: BP 157/81; PULSE 51; RESP 16; O2SAT 99
[2022-12-13 10:02] LABS: Troponin I < 0.012 ng/mL (0.01-0.034)
[2022-12-13 10:30] VITALS: BP 164/78; PULSE 51; RESP 13; O2SAT 97
== END 2022-12-13 10:43 | disposition home or self-care (01) ==
PROVIDERS: Emergency Provider Emergency Medicine; PCP Internal Medicine
DX: I49.8 Other specified cardiac arrhythmias (principal); R07.9 Chest pain, unspecified; Z20.822 Contact with and (suspected) exposure to COVID-19
CPT/HCPCS: 36415; 71045; 80053; 81003; 82550; 82553; 83690; 83735; 83880; 84484; 85025; 85610; 85730; 87635; 93005; 99283; 99284; C9803

== ENCOUNTER 2024-01-06 18:12 | Emergency (ER) | payer OTHER, SELFPAY ==
[2022-09-16 04:05] VITALS: BMI 29.5
[2024-01-06 18:49] VITALS: BP 209/101; PULSE 52; RESP 20; TEMP 36.6; O2SAT 99; BMI 28.7
--- NOTE | 2024-01-06 18:54 | DI.RAD.S_ITS ---
PROCEDURE: XR CHEST 1V INDICATIONS: chest pain TECHNIQUE: One view of the chest was acquired. COMPARISON: [facility], CR, XR CHEST 1V, 12/13/2022, 7:37. FINDINGS: Surgical changes and devices: None. Lungs and pleura: Lungs are clear. No pleural effusions or pneumothorax. Mediastinum: Mediastinal contours appear normal. Heart size is normal. Bones and chest wall: No suspicious bony lesions. Overlying soft tissues appear unremarkable. IMPRESSION: No acute cardiopulmonary abnormality is seen. Dictated by: Luis Rogers M.D. on 01/06/2024 at 19:24 Approved by: Luis Rogers M.D. on 01/06/2024 at 19:24
[2024-01-06 19:07] LABS: Add Manual Diff / Slide Review NO; Basophils Absolute Auto 0 /uL (0-100); Basophils Percent Auto 1.1 % (0-2); Eosinophils Absolute Auto 200 /uL (0-450); Eosinophils Percent Auto 6.6 % (2-4); Hemoglobin 13.5 g/dL (13.5-17.5); Lymphocytes Absolute Auto 1100 /uL (1100-4500); Lymphocytes Percent Auto 29.7 % (25-40); Mean Corpuscular HGB Conc 33.8 % (30-36); Mean Corpuscular Hemoglobin 32.3 PG (26-34); Mean Corpuscular Volume 95.4 fL (80-100); Monocytes Absolute Auto 400 /uL (0-900); Monocytes Percent Auto 9.8 % (3-14); Neutrophils Absolute Auto 2000 /uL (1500-7000); Neutrophils Percent Auto 52.8 % (50-75); Platelet Count 130 X10^3/uL (150-400); Red Blood Cell Count 4.19 X10^6/uL (4.5-5.9); Red Cell Distribution Width 13.6 % (11.6-14.8); White Blood Cell Count 3.7 X10^3/uL (4.5-11.0)
[2024-01-06 19:18] LABS: INR 0.9 (0.9-1.3)
[2024-01-06 19:21] LABS: PTT Partial Thromboplastin Tim 31 SECONDS (25.1-36.5)
--- NOTE | 2024-01-06 19:22 | ED_ITS ---
HPI - General Adult General Chief complaint: Hypertension Stated complaint: BP 208/110 enlarged acsending aorta Time Seen by Provider: 01/06/24 18:32 Source: patient Mode of arrival: Ambulatory History of Present Illness HPI narrative: 73-year-old male with history of slightly enlarged aortic root (4.2cm per patient) presents for elevated blood pressure readings this evening. Patient states that he did have a lot of salt in his food last night as well as some alcohol, which he believes may be contributing to his blood pressure readings. 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 Patient states his blood pressure is usually within normal limits, however this evening they were as high as 200 systolic measured on a home blood pressure cuff. Patient denies chest pain, shortness of breath, worst headache of life, other complaints at this time. Related Data Previous Rx's Medication Instructions Recorded aspirin 81 mg tablet,delayed 81 mg PO DAILY #30 tabs 09/16/22 release pantoprazole 40 mg tablet,delayed 40 mg PO 0700 #30 tabs 09/16/22 release sucralfate 100 mg/mL oral 10 ml PO QACHS #200 mL 09/16/22 suspension (Carafate) Allergies Allergy/AdvReac Type Severity Reaction Status Date / Time No Known Drug Allergies Allergy Verified 01/06/24 18:54 Review of Systems Review of Systems Narrative: Negative except as noted above Patient History Social History household members: spouse Smoking Status: Former smoker alcohol intake: current Smoking Status: Former smoker alcohol intake frequency: 0-2 drinks per day Substance Use Type: marijuana Exam Initial Vital Signs Initial Vital Signs: Vital Signs Temperature 98 F 01/06/24 18:49 Pulse Rate 52 L 01/06/24 18:49 Respiratory Rate 20 01/06/24 18:49 Blood Pressure 209/101 H 01/06/24 18:49 Pulse Oximetry 99 01/06/24 18:49 Oxygen Delivery Method Room Air 01/06/24 18:49 Const: Awake, alert, no acute distress, nontoxic appearing Cardiac: regular rate, regular rhythm RESP: unlabored, clear bilaterally, no wheezing GI: Soft, nontender, nondistended, no rebound, no guarding MSK: Atraumatic, full range of motion, pulses equal Skin: Warm, Dry, intact, no rashes Neuro: AO x3, CN II-XII grossly intact, moves all extremities Course Orders Ordered: Discontinued Medications Aspirin (Aspirin 81 Mg Chew Tab) 324 mg PO NOW ONE Stop: 01/06/24 18:55 Last Admin: 01/06/24 19:23 Dose: 324 mg Documented By: BARRON Vital Signs Vital signs: Vital Signs - 8 hr 01/06/24 18:49 01/06/24 19:24 01/06/24 19:25 Temperature 98 F Pulse Rate 52 L 51 L 51 L Respiratory Rate 20 20 18 Blood Pressure 209/101 H 191/96 H Pulse Oximetry 99 98 98 Oxygen Delivery Method Room Air 01/06/24 19:25 01/06/24 19:25 01/06/24 19:30 Temperature Pulse Rate 51 L Respiratory Rate 18 Blood Pressure 191/96 H 190/91 H Pulse Oximetry 97 Oxygen Delivery Method 01/06/24 19:30 Temperature Pulse Rate 52 L Respiratory Rate 16 Blood Pressure Pulse Oximetry 99 Oxygen Delivery Method Room Air Medical Decision Making Differential Diagnosis Differential Diagnosis: Asymptomatic hypertension, hypertensive urgency, kidney failure Lab Data 01/06/24 19:00 01/06/24 19:00 Labs: Lab Results 01/06/24 Range/Units 19:00 WBC 3.7 L (4.5-11.0) X10^3/uL RBC 4.19 L (4.5-5.9) X10^6/uL Hgb 13.5 (13.5-17.5) g/dL Hct 40.0 L (41-53) % MCV 95.4 (80-100) fL MCH 32.3 (26-34) PG MCHC 33.8 (30-36) % RDW 13.6 (11.6-14.8) % Plt Count 130 L (150-400) X10^3/uL Neut % (Auto) 52.8 (50-75) % Lymph % (Auto) 29.7 (25-40) % [place] % (Auto) 9.8 (3-14) % Eos % (Auto) 6.6 H (2-4) % Baso % (Auto) 1.1 (0-2) % Neut # (Auto) 2000 (2608-7437) /uL Lymph # (Auto) 1100 (9987-5882) /uL [place] # (Auto) 400 (0-900) /uL Eos # (Auto) 200 (0-450) /uL Baso # (Auto) 0 (0-100) /uL PT 10.0 (9.4-12.5) SECONDS INR 0.9 (0.9-1.3) APTT 31 (25.1-36.5) SECONDS Sodium 139 (137-145) mmol/L Potassium 4.0 (3.4-5.1) mmol/L Chloride 106 (98-107) mmol/L Carbon Dioxide 27 (22-32) mmol/L BUN 23 H (9-20) mg/dL Creatinine 0.73 (0.66-1.25) mg/dL Estimated GFR > 60 (>60) mL/min BUN/Creatinine Ratio 31.5 H (6-22) Glucose 91 (80-110) mg/dL Calcium 9.1 (8.4-10.2) mg/dL Magnesium 2.1 (1.6-2.3) mg/dL Total Bilirubin 0.6 (0.2-1.3) mg/dL AST 36 (17-59) IU/L ALT 25 (<50) IU/L Alkaline Phosphatase 57 (38-126) U/L Total Creatine Kinase 156 (55-170) U/L Troponin I < 0.012 (0.01-0.034) ng/mL Total Protein 7.3 (6.3-8.2) g/dL Albumin 4.2 (3.5-5.0) g/dL Globulin 3.1 (1.7-4.1) g/dL Albumin/Globulin Ratio 1.4 (1.0-2.8) Lipase 40 (23-300) U/L [facility] Narrative Medical decision making narrative: Well-appearing patient with asymptomatic elevated blood pressure readings this evening. Hypertension likely exacerbated by increased salt intake and alcohol intake the night before. Laboratory work reviewed, patient has chronic thrombocytopenia which is unchanged from his baseline, patient also has WBC count 3.7 of uncertain significance. Kidney function, magnesium, electrolytes all within normal limits. Patient counseled on lab x-ray findings, discussed changes that patient may make to his lisinopril dosing. In addition recommended close PCP follow up. ED return precautions discussed at bedside. Patient expressed understanding of the plan and is in agreement at this time. All questions answered at the time of discharge. Discharge Plan Departure Patient Disposition: Home Clinical Impression: Hypertension Qualifiers: Hypertension type: unspecified Qualified Code(s): I10 - Essential (primary) hypertension Instructions: DI for High Blood Pressure Activity Restrictions/Additional Instructions: Your laboratory work showed a slightly decreased white blood cell count, and slightly low platelets, however you chronically seemed to have low platelets from previous lab draws. Due to your age I do recommend establishing care with a primary care doctor, however in the meantime for your blood pressure you may increase your lisinopril dose in 5 mg increments, with maximum dosage of 40 mg per day. Prescriptions: No Action aspirin 81 mg Tablet,Delayed Release (Dr/Ec) 81 mg PO DAILY Qty: 30 0RF pantoprazole 40 mg Tablet,Delayed Release (Dr/Ec) 40 mg PO 0700 Qty: 30 0RF sucralfate [Carafate] 100 mg/mL suspension 10 ml PO QACHS Qty: 200 0RF Referrals: Bucky Gamino MD [Primary Care Provider] - Stand Alone Forms: Patient Portal/API
[2024-01-06 19:23] LABS: Alanine Aminotransferase 25 IU/L (<50); Albumin 4.2 g/dL (3.5-5.0); Albumin Globulin Ratio 1.4 (1.0-2.8); Alkaline Phosphatase 57 U/L (38-126); Aspartate Aminotransferase 36 IU/L (17-59); BUN Creatinine Ratio 31.5 (6-22); Bilirubin Total 0.6 mg/dL (0.2-1.3); Blood Urea Nitrogen 23 mg/dL (9-20); Calcium 9.1 mg/dL (8.4-10.2); Carbon Dioxide 27 mmol/L (22-32); Chloride 106 mmol/L (98-107); Creatine Kinase 156 U/L (55-170); Estimated Glomerular Filt Rate > 60 mL/min (>60); Globulin 3.1 g/dL (1.7-4.1); Glucose 91 mg/dL (80-110); HEMOLYSIS < 15 (0-50); Lipase 40 U/L (23-300); Magnesium 2.1 mg/dL (1.6-2.3); Sodium 139 mmol/L (137-145); Total Protein 7.3 g/dL (6.3-8.2)
[2024-01-06] MEDS: ASPIRIN 81 MG CHEW TAB 324 MG PO (19:23)
[2024-01-06 19:24] VITALS: PULSE 51; RESP 20; O2SAT 98
[2024-01-06 19:25] VITALS: BP 191/96; PULSE 51; RESP 18; O2SAT 97; O2SAT 98
[2024-01-06 19:30] VITALS: BP 190/91; PULSE 52; RESP 16; O2SAT 99
--- NOTE | 2024-01-06 19:31 | PC.NURSE ---
Pt reports feeling puffy in the face and headache. Pt checked blood pressure and highest was 208/110 at home. He took a new medication of lisinopril 5mg today. This was the first time taking this medication and was recently prescribed. Pt also reports having 8 hard drinks yesterday. Currently denies headache.
[2024-01-06 19:34] LABS: Troponin I < 0.012 ng/mL (0.01-0.034)
[2024-01-06 20:00] VITALS: PULSE 50; RESP 21; O2SAT 99
[2024-01-06 20:01] VITALS: BP 174/88; PULSE 52; RESP 18; O2SAT 99
== END 2024-01-06 20:06 | disposition home or self-care (01) ==
PROVIDERS: Emergency Provider Emergency Medicine; PCP Internal Medicine
DX: I10 Essential (primary) hypertension (principal); Z87.891 Personal history of nicotine dependence
CPT/HCPCS: 36415; 71045; 80053; 82550; 83690; 83735; 84484; 85025; 85610; 85730; 93005; 93010; 99284

== ENCOUNTER → 2024-10-29 14:37 | Outpatient (CLI) | payer MEDICARE, SELFPAY ==
[2022-09-16 04:05] VITALS: BMI 29.5
--- NOTE | 2024-10-29 14:43 | DI.RAD.S_ITS ---
PROCEDURE: XR CHEST 2V INDICATIONS: Supraventricular tachycardia, unspecified TECHNIQUE: 2 views of the chest were acquired. COMPARISON: [facility], CR, XR CHEST 1V, 12/13/2022, 7:37. [facility], CR, XR CHEST 1V, 01/06/2024, 19:05. FINDINGS: Surgical changes and devices: None Lungs and pleura: Lungs are clear. No pleural effusions or pneumothorax. Mediastinum: Mediastinal contours are normal. Heart size is normal. Unchanged from earlier exam. Bones and chest wall: No suspicious bony abnormalities. Soft tissues appear unremarkable. IMPRESSION: No acute cardiopulmonary abnormality is seen. Dictated by: Allen Aguero M.D. on 10/30/2024 at 10:24 Approved by: Allen Aguero M.D. on 10/30/2024 at 10:29
[2024-10-29 15:39] LABS: Blood Urea Nitrogen 26 mg/dL (9-20); Calcium 9.5 mg/dL (8.4-10.2); Carbon Dioxide 27 mmol/L (22-32); Chloride 107 mmol/L (98-107); Estimated Glomerular Filt Rate > 60 mL/min (>60); Glucose 93 mg/dL (80-110); HEMOLYSIS < 15 (0-50); Potassium 4.6 mmol/L (3.4-5.1); Sodium 141 mmol/L (137-145)
[2024-10-29 16:09] LABS: Thyroid Stimulating Hormone 3.91 uIU/mL (0.47-4.68)
== END ==
PROVIDERS: Referring Provider Nurse Practitioner; Visit Provider Nurse Practitioner
DX: I47.10 Supraventricular tachycardia, unspecified (principal); I25.119 Atherosclerotic heart disease of native coronary artery with unspecified angina pectoris
CPT/HCPCS: 36415; 71046; 80048; 83735; 84443

== ENCOUNTER 2024-10-30 11:43 | Emergency (ER) | payer MEDICARE, SELFPAY ==
[2022-09-16 04:05] VITALS: BMI 29.5
[2024-10-30] VITALS (14 sets, daily range): BP systolic 96–168; BP diastolic 65–103; PULSE 75–144; RESP 9–24; TEMP 36.6; O2SAT 96–99; BMI 29.5
--- NOTE | 2024-10-30 11:49 | EKG_ITS ---
[place] [address] [place] [id number] Test Date: 2024-10-30 Pat Name: Jeffry Reich Department: Room: Gender: Male Missile Technician: MATHEW : 1950 Requested By: Order Number: [id number] Reading MD: Enoch Grossman Measurements Intervals [place] Rate: 114 P: NE: QRS: -65 QRSD: 100 T: 72 QT: 298 QTc: 410 Interpretive Statements Atrial fibrillation with rapid ventricular response Left anterior fascicular block Anteroseptal infarct , age undetermined Electronically Signed On 10-30-2024 12:57:40 PST by Enoch Grossman
--- NOTE | 2024-10-30 11:50 | DI.RAD.S_ITS ---
PROCEDURE: XR CHEST 1V INDICATIONS: chest pain TECHNIQUE: One view of the chest was acquired. COMPARISON: [facility], CR, XR CHEST 2V, 10/29/2024, 14:51. [facility], CR, XR CHEST 1V, 01/06/2024, 19:05. FINDINGS: Surgical changes and devices: None. Lungs and pleura: Lungs are clear. No pleural effusions or pneumothorax. Mediastinum: Mediastinal contours appear normal. Heart size is normal. Bones and chest wall: No suspicious bony lesions. Overlying soft tissues appear unremarkable. IMPRESSION: No acute cardiopulmonary abnormality is seen. Dictated by: Bryn Tabares M.D. on 10/30/2024 at 12:21 Approved by: Bryn Tabares M.D. on 10/30/2024 at 12:22
[2024-10-30 12:03] LABS: Add Manual Diff / Slide Review NO; Basophils Absolute Auto 0 /uL (0-100); Basophils Percent Auto 0.3 % (0-2); Eosinophils Absolute Auto 0 /uL (0-450); Eosinophils Percent Auto 0.3 % (2-4); Hematocrit 51.3 % (41-53); Hemoglobin 17.4 g/dL (13.5-17.5); Lymphocytes Absolute Auto 900 /uL (1100-4500); Lymphocytes Percent Auto 13.9 % (25-40); Mean Corpuscular HGB Conc 33.8 % (30-36); Mean Corpuscular Volume 94.7 fL (80-100); Monocytes Absolute Auto 400 /uL (0-900); Monocytes Percent Auto 5.8 % (3-14); Neutrophils Absolute Auto 5400 /uL (1500-7000); Neutrophils Percent Auto 79.7 % (50-75); Platelet Count 173 X10^3/uL (150-400); Red Blood Cell Count 5.42 X10^6/uL (4.5-5.9); Red Cell Distribution Width 13.6 % (11.6-14.8); White Blood Cell Count 6.7 X10^3/uL (4.5-11.0)
[2024-10-30 12:11] LABS: Prothrombin Time 11.4 SECONDS (9.4-12.5)
[2024-10-30 12:13] LABS: PTT Partial Thromboplastin Tim 32 SECONDS (25.1-36.5)
[2024-10-30] MEDS: ASPIRIN 81 MG CHEW TAB 324 MG PO (12:14)
[2024-10-30 12:15] LABS: Alanine Aminotransferase 31 IU/L (<50); Albumin 4.9 g/dL (3.5-5.0); Albumin Globulin Ratio 1.4 (1.0-2.8); Alkaline Phosphatase 50 U/L (38-126); Aspartate Aminotransferase 41 IU/L (17-59); Blood Urea Nitrogen 25 mg/dL (9-20); Calcium 9.5 mg/dL (8.4-10.2); Carbon Dioxide 22 mmol/L (22-32); Chloride 103 mmol/L (98-107); Creatine Kinase 117 U/L (55-170); Estimated Glomerular Filt Rate > 60 mL/min (>60); Globulin 3.4 g/dL (1.7-4.1); Glucose 152 mg/dL (80-110); HEMOLYSIS < 15 (0-50); Lipase 37 U/L (23-300); Magnesium 1.7 mg/dL (1.6-2.3); Potassium 4.4 mmol/L (3.4-5.1); Sodium 137 mmol/L (137-145); Total Protein 8.3 g/dL (6.3-8.2)
[2024-10-30 12:27] LABS: NT-proBNP (BNP-Adult 18+) 6530 pg/mL (<450); Troponin I 0.059 ng/mL (0.01-0.034)
[2024-10-30] MEDS: dilTIAZem 25 MG/5 ML SDV 10 MG IV (12:38)
--- NOTE | 2024-10-30 12:47 | EKG_ITS ---
[place] [address] [place] [id number] Test Date: 2024-10-30 Pat Name: Jeffry Reich Department: Room: Gender: Male Loader Technician: MATHEW : 1950 Requested By: Order Number: [id number] Reading MD: Enoch Grossman Measurements Intervals [place] Rate: 79 P: 81 [place]: 190 QRS: -61 QRSD: 98 T: 46 QT: 390 QTc: 447 Interpretive Statements Sinus rhythm with premature atrial complexes Left anterior fascicular block Anteroseptal infarct , age undetermined Electronically Signed On 10-30-2024 12:58:04 PST by Enoch Grossman
--- NOTE | 2024-10-30 14:07 | ED.ARRPALP ---
HPI - Arrhythmia/Palpitations General Chief Complaint: Arrhythmia/Palpitations Stated Complaint: high heart rate t-1 Time Seen by Provider: 10/30/24 12:26 Source: patient Mode of arrival: Ambulatory History of Present Illness HPI narrative: Patient is a 74-year-old male history of NSTEMI GERD followed by [facility] Dr. Thomas, presents today with elevated heart rate. He reports that he was not feeling quite right a yesterday no real palpitations or shortness of breath or chest but could tell he had a fast heart rate. He actually was seen by cardiology here in town who on their vitals report that he had a heart rate of 138 he was started on metoprolol which he says makes him nauseous. He says last night he was up frequently to urinate which is abnormal for him he again noted that he had a higher heart rate. But he was absolutely no chest pain or palpitations he just counted his heart rate seen you it was fast earlier in the day. He has not on anticoagulation he has no prior history of congestive heart failure or arrhythmia. No cough or shortness of breath. Related Data Previous Rx's Medication Instructions Recorded aspirin 81 mg tablet,delayed 81 mg PO DAILY #30 tabs 09/16/22 release pantoprazole 40 mg tablet,delayed 40 mg PO 0700 #30 tabs 09/16/22 release sucralfate 100 mg/mL oral 10 ml PO QACHS #200 mL 09/16/22 suspension (Carafate) apixaban 5 mg tablet (Eliquis) 5 mg PO BID #60 tabs 10/30/24 diltiazem HCl 180 mg 180 mg PO DAILY #30 caps 10/30/24 capsule,extended release 24 hr furosemide 20 mg tablet (Lasix) 20 mg PO DAILY #10 tabs 10/30/24 Allergies Allergy/AdvReac Type Severity Reaction Status Date / Time No Known Drug Allergies Allergy Verified 10/30/24 11:52 Patient History Social History household members: spouse Smoking Status: Former smoker alcohol intake: current Smoking Status: Former smoker alcohol intake frequency: 0-2 drinks per day Exam Initial Vital Signs Initial Vital Signs: Vital Signs Temperature 98 F 10/30/24 11:45 Pulse Rate 125 H 10/30/24 11:45 Respiratory Rate 16 10/30/24 11:45 Blood Pressure 159/95 H 10/30/24 11:45 Pulse Oximetry 99 10/30/24 11:45 Oxygen Delivery Method Room Air 10/30/24 11:45 GENERAL: Alert very pleasant 74-year-old male and in no acute distress. HEENT: Head atraumatic,EOMI, pupils reactive, face symmetric, moist mucous membranes CARDIOVASCULAR: Irregularly irregular not tachycardic RESPIRATORY: Breath sounds equal bilaterally, no wheezes rales or rhonchi. No conversational dyspnea ABDOMEN: Soft, nontender. Normoactive bowel sounds all 4 quadrants. No guarding or rebound. EXTREMITIES: Normal range of motion, no clubbing or edema no lower extremity edema. Neurovascularly intact NEUROLOGICAL: Alert and oriented x4.Normal gait and speech. Cranial nerves II through XII grossly intact. SKIN: Warm, dry, no laceration, no petechiae, no rashes or lesions. Course Orders Ordered: ED Orders 10/30/24 11:50 XR chest 1V Stat EKG-12 Lead Stat 10/30/24 11:55 Complete Blood Count AUTO DIFF Stat Comprehensive Metabolic Panel Stat Lipase Stat Magnesium Stat NT-proBNP (BNP-Adult 18+) Stat PTT Partial Thromboplastin [place] Stat Prothrombin Time INR Stat Troponin & CK Cardiac Panel Stat 10/30/24 12:47 EKG-12 Lead Stat 10/30/24 14:13 Trop I [Troponin I] Stat Discontinued Medications Apixaban (Apixaban 5 Mg Tablet) 5 mg PO NOW ONE Stop: 10/30/24 16:48 Last Admin: 10/30/24 17:00 Dose: 5 mg Documented By: KATY Aspirin (Aspirin 81 Mg Chew Tab) 324 mg PO NOW ONE Stop: 10/30/24 11:50 Last Admin: 10/30/24 12:14 Dose: 324 mg Documented By: KATY Diltiazem HCl (Diltiazem 25 Mg/5 Ml Sdv) 10 mg IV NOW ONE Stop: 10/30/24 12:27 Last Admin: 10/30/24 12:38 Dose: 10 mg Documented By: KATY Diltiazem HCl (Diltiazem Cd 180 Mg Cap) 180 mg PO NOW ONE Stop: 10/30/24 16:48 Last Admin: 10/30/24 17:00 Dose: 180 mg Documented By: KATY Vital Signs Vital signs: Vital Signs - 8 hr 10/30/24 11:45 10/30/24 12:00 10/30/24 12:01 Temperature 98 F Pulse Rate 125 H 138 H Respiratory Rate 16 9 L Blood Pressure 159/95 H 96/65 Pulse Oximetry 99 98 Oxygen Delivery Method Room Air 10/30/24 12:30 10/30/24 12:30 10/30/24 12:38 Temperature Pulse Rate 139 H 141 H Respiratory Rate 18 Blood Pressure 131/97 H 131/97 H Pulse Oximetry 96 Oxygen Delivery Method 10/30/24 13:00 10/30/24 13:00 10/30/24 13:30 Temperature Pulse Rate 75 Respiratory Rate 14 Blood Pressure 109/76 120/86 Pulse Oximetry 97 Oxygen Delivery Method 10/30/24 13:30 10/30/24 14:00 10/30/24 14:00 Temperature Pulse Rate 83 91 H Respiratory Rate 13 19 Blood Pressure 135/89 Pulse Oximetry 98 98 Oxygen Delivery Method 10/30/24 14:30 10/30/24 14:30 10/30/24 15:00 Temperature Pulse Rate 100 H 123 H Respiratory Rate 10 L 21 Blood Pressure 168/103 H Pulse Oximetry 98 99 Oxygen Delivery Method 10/30/24 15:30 10/30/24 15:30 10/30/24 16:00 Temperature Pulse Rate 105 H Respiratory Rate 16 Blood Pressure 123/77 142/91 H Pulse Oximetry 99 Oxygen Delivery Method 10/30/24 16:00 10/30/24 16:30 10/30/24 16:30 Temperature Pulse Rate 111 H 122 H Respiratory Rate 24 22 Blood Pressure 113/85 Pulse Oximetry 97 98 Oxygen Delivery Method 10/30/24 17:00 10/30/24 17:00 Temperature Pulse Rate 144 H Respiratory Rate 18 Blood Pressure 101/80 Pulse Oximetry 98 Oxygen Delivery Method MDM - Arrhythmia/Palpitations Lab Data 10/30/24 11:55 10/30/24 11:55 Labs: Lab Results 10/30/24 10/30/24 Range/Units 11:55 14:13 WBC 6.7 (4.5-11.0) X10^3/uL RBC 5.42 (4.5-5.9) X10^6/uL Hgb 17.4 (13.5-17.5) g/dL Hct 51.3 (41-53) % MCV 94.7 (80-100) fL MCH 32.0 (26-34) PG MCHC 33.8 (30-36) % RDW 13.6 (11.6-14.8) % Plt Count 173 (150-400) X10^3/uL Neut % (Auto) 79.7 H (50-75) % Lymph % (Auto) 13.9 L (25-40) % [place] % (Auto) 5.8 (3-14) % Eos % (Auto) 0.3 L (2-4) % Baso % (Auto) 0.3 (0-2) % Neut # (Auto) 5400 (6307-2968) /uL Lymph # (Auto) 900 L (8214-7897) /uL [place] # (Auto) 400 (0-900) /uL Eos # (Auto) 0 (0-450) /uL Baso # (Auto) 0 (0-100) /uL PT 11.4 (9.4-12.5) SECONDS INR 1.0 (0.9-1.3) APTT 32 (25.1-36.5) SECONDS Sodium 137 (137-145) mmol/L Potassium 4.4 (3.4-5.1) mmol/L Chloride 103 (98-107) mmol/L Carbon Dioxide 22 (22-32) mmol/L BUN 25 H (9-20) mg/dL Creatinine 1.19 (0.66-1.25) mg/dL Estimated GFR > 60 (>60) mL/min BUN/Creatinine Ratio 21.0 (6-22) Glucose 152 H (80-110) mg/dL Calcium 9.5 (8.4-10.2) mg/dL Magnesium 1.7 (1.6-2.3) mg/dL Total Bilirubin 1.0 (0.2-1.3) mg/dL AST 41 (17-59) IU/L ALT 31 (<50) IU/L Alkaline Phosphatase 50 (38-126) U/L Total Creatine Kinase 117 (55-170) U/L Troponin I 0.059 H 0.066 H (0.01-0.034) ng/mL NT-Pro-B Natriuret Pep 6530 H (<450) pg/mL Total Protein 8.3 H (6.3-8.2) g/dL Albumin 4.9 (3.5-5.0) g/dL Globulin 3.4 (1.7-4.1) g/dL Albumin/Globulin Ratio 1.4 (1.0-2.8) Lipase 37 (23-300) U/L Imaging Data Chest x-ray: Radiologist's Impresson: PROCEDURE: XR CHEST 1V INDICATIONS: chest pain TECHNIQUE: One view of the chest was acquired. COMPARISON: [facility], CR, XR CHEST 2V, 10/29/2024, 14:51. [facility], CR, XR CHEST 1V, 01/06/2024, 19:05. FINDINGS: Surgical changes and devices: None. Lungs and pleura: Lungs are clear. No pleural effusions or pneumothorax. Mediastinum: Mediastinal contours appear normal. Heart size is normal. Bones and chest wall: No suspicious bony lesions. Overlying soft tissues appear unremarkable. IMPRESSION: No acute cardiopulmonary abnormality is seen. Dictated by: Bryn Tabares M.D. on 10/30/2024 at 12:21 Approved by: Bryn Tabares M.D. on 10/30/2024 at 12:22 ECG Data Attestation: I personally reviewed and interpreted this ECG as follows: Interpretation: Atrial fibrillation with RVR rate [address] changes Repeat EKGs I suspect is still atrial fibrillation do not agree with computer interpretation rate 76 no ischemia MDM Narrative Medical decision making narrative: MDM CC: Palpitations Complicating co-morbidities: Hypertension, NSTEMI enlarged aortic root Medical records reviewed: Previous ED visits Differential considered: Atrial fibrillation atrial flutter SVT WPW Exam documented above, pertinent findings include: Well-appearing 74-year-old male no acute distress regular rhythm Lab Test results independently reviewed as above. Pertinent findings: CBC no leukocytosis or anemia CMP no electrolyte abnormality no GRISEL Troponin 0.059 repeat 0.066, BNP 6530 Liver enzymes bilirubin within normal limits TSH done on October 29 is 3.91 Independently reviewed EKG as above atrial fibrillation no ischemia EKGs show atrial fibrillation no evidence of ischemia or SVT Imaging studies independently reviewed: Chest x-ray no acute cardiomegaly Consultations: Of Dr. Knight, [facility] updated patient's test results reports he had a normal echo 1 year ago probably some diastolic heart failure okay to start on diltiazem 180 mg along with low diuretic of Lasix and Eliquis Treatments: Cardizem Lopressor, diltiazem Eliquis Re-evaluations: Patient's heart rate did slow down with 10 mg of Cardizem went to under 100 is slowly creeping back up. He remains completely asymptomatic Discussion: Patient presents today with AFib with RVR completely asymptomatic. He likely has had it for some time I suspect that the troponin elevation is secondary to demand ischemia ongoing tachycardia. He does not have any evidence of fluid overload or peripheral edema but does have an elevated BNP. At this time he was not a candidate for cardioversion. Cardiology was consulted agree with p.o. meds outpatient follow-up. He also has no contraindications for anticoagulation Discharge Plan Departure Patient Disposition: Home Clinical Impression: Atrial fibrillation with rapid ventricular response Instructions: DI for Atrial Fibrillation Activity Restrictions/Additional Instructions: *You have been diagnosed with atrial fibrillation *What to do: At this time please follow up with Cardiology they have been made aware. Please be sure to take your medication as directed. You are now on Eliquis which is a blood thinner. If you fallen hit your head while on Eliquis he must come back to the emergency department. Please note that if you should cut yourself you will have increased bleeding apply pressure may also try ice as well to help stop bleeding. *Continue to take medications as directed Diltiazem 180 mg daily Lasix 20 mg once a day for 4 days then stop Eliquis 5 mg twice a day STOP taking metoprolol STOP taking aspirin *Follow up with your primary care provider in 2-3 days or call [phone] Call your associate professor of communication to schedule follow up appointment *Return to ER if you should have increased chest pain heart palpitations heart rate greater than 140 despite medication [or] any new, worsening or concerning symptoms Prescriptions: New diltiazem HCl 180 mg capsule,extended release 24hr 180 mg PO DAILY Qty: 30 0RF Eliquis 5 mg tablet 5 mg PO BID Qty: 60 0RF furosemide [Lasix] 20 mg tablet 20 mg PO DAILY Qty: 10 0RF No Action aspirin 81 mg Tablet,Delayed Release (Dr/Ec) 81 mg PO DAILY Qty: 30 0RF pantoprazole 40 mg Tablet,Delayed Release (Dr/Ec) 40 mg PO 0700 Qty: 30 0RF sucralfate [Carafate] 100 mg/mL suspension 10 ml PO QACHS Qty: 200 0RF Stand Alone Forms: Patient Portal/API/Survey
--- NOTE | 2024-10-30 14:12 | EKG_ITS ---
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
[2024-10-30 14:45] LABS: Troponin I 0.066 ng/mL (0.01-0.034)
[2024-10-30] MEDS: APIXABAN 5 MG TABLET PO (17:00)
[2024-10-30] MEDS: dilTIAZem CD 180 MG CAP PO (17:00)
== END 2024-10-30 17:09 | disposition home or self-care (01) ==
PROVIDERS: Emergency Provider Emergency Medicine
DX: I48.20 Chronic atrial fibrillation, unspecified (principal); Z79.01 Long term (current) use of anticoagulants; I25.2 Old myocardial infarction; K21.9 Gastro-esophageal reflux disease without esophagitis; Z87.891 Personal history of nicotine dependence; F10.90 Alcohol use, unspecified, uncomplicated; R07.9 Chest pain, unspecified; I10 Essential (primary) hypertension
CPT/HCPCS: 71045; 80053; 82550; 83690; 83735; 83880; 84484; 85025; 85610; 85730; 93005; 96374; 99284

== ENCOUNTER → 2025-04-16 09:59 | Outpatient (CLI) | payer MEDICARE, SELFPAY ==
[2022-09-16 04:05] VITALS: BMI 29.5
--- NOTE | 2025-04-16 10:01 | DI.CT.S_ITS ---
PROCEDURE: CT ABDOMEN PELVIS W CON INDICATIONS: ABDOMINAL PAIN/LEFT LOWER QUADRANT TECHNIQUE: After the administration of intravenous contrast, axial sections acquired from the lung bases to the pubic symphysis. Coronal and sagittal reformats were performed. For radiation dose reduction, the following was used: automated exposure control, adjustment of mA and/or kV according to patient size. COMPARISON: None. FINDINGS: Image quality: Diagnostic. Lower Chest: Three-vessel coronary calcifications. ABDOMEN: Liver: No solid mass. Suspected segment 7 cyst measuring less than 1 cm. Gallbladder: Absent. Biliary ducts: No biliary dilation. Pancreas: No ductal dilation. Spleen: Size is within normal limits. Adrenal Glands: No adrenal nodules. Kidneys and Ureters: No hydronephrosis. No solid mass. No complex renal cystic lesion which requires follow up. Punctate nonobstructing right-sided nephrolithiasis. Stomach and Bowel: Normal colonic caliber, without significant wall thickening. Colonic diverticulosis without evidence of diverticulitis. Normal appendix. Peritoneum: No abnormal intraperitoneal fluid. No free air. Ventral Wall: No significant ventral hernia. Abdominal Nodes: No retroperitoneal or mesenteric adenopathy by size criteria. Vessels: Aorta and inferior vena cava are normal in size. PELVIS: Pelvic Organs: Unremarkable. Bladder: Diffuse wall thickening. Pelvic Nodes: No enlarged lymph nodes. Miscellaneous: No inguinal hernias are seen. Bones: No aggressive osseous abnormality. Degenerative disc disease of the lumbar spine. IMPRESSION: Diffuse bladder wall thickening, suggestive of cystitis. Correlate with urinalysis. Differential includes chronic outlet obstruction. Colonic diverticulosis without evidence of diverticulitis. Dictated by: Justice Luz M.D. on 04/18/2025 at 20:02 Approved by: Justice Luz M.D. on 04/18/2025 at 20:04
[2025-04-16 10:26] LABS: Estimated Glomerular Filt Rate > 60 mL/min (>60)
== END ==
LOC: CT 10:01
PROVIDERS: PCP Physician Assistant; Referring Provider Internal Medicine Gastroenterology; Visit Provider Internal Medicine Gastroenterology
DX: K57.90 Diverticulosis of intestine, part unspecified, without perforation or abscess without bleeding (principal); N20.0 Calculus of kidney; K59.00 Constipation, unspecified; R10.32 Left lower quadrant pain; I25.10 Atherosclerotic heart disease of native coronary artery without angina pectoris; M51.369 Other intervertebral disc degeneration, lumbar region without mention of lumbar back pain or lower extremity pain; Z90.49 Acquired absence of other specified parts of digestive tract; Z79.01 Long term (current) use of anticoagulants
CPT/HCPCS: 36415; 74177; 82565; Q9967

== ENCOUNTER → 2025-04-19 12:09 | Outpatient (CLI) | payer MEDICARE, SELFPAY ==
[2022-09-16 04:05] VITALS: BMI 29.5
[2025-04-19 12:59] LABS: Add Manual Diff / Slide Review NO; Hematocrit 40.0 % (41-53); Hemoglobin 13.7 g/dL (13.5-17.5); Lymphocytes Absolute Auto 900 /uL (1100-4500); Mean Corpuscular HGB Conc 34.2 % (30-36); Mean Corpuscular Hemoglobin 32.6 PG (26-34); Mean Corpuscular Volume 95.3 fL (80-100); Platelet Count 138 X10^3/uL (150-400)
[2025-04-19 13:15] LABS: Blood Urea Nitrogen 24 mg/dL (9-20); Calcium 9.1 mg/dL (8.4-10.2); Carbon Dioxide 25 mmol/L (22-32); Chloride 108 mmol/L (98-107); Estimated Glomerular Filt Rate > 60 mL/min (>60); Glucose 109 mg/dL (70-99); HEMOLYSIS < 15 (0-50); Potassium 4.4 mmol/L (3.4-5.1); Sodium 139 mmol/L (137-145)
== END ==
PROVIDERS: PCP Physician Assistant; Referring Provider Internal Medicine Gastroenterology; Visit Provider Internal Medicine Gastroenterology
DX: K59.00 Constipation, unspecified (principal); R10.32 Left lower quadrant pain; Z79.01 Long term (current) use of anticoagulants
CPT/HCPCS: 36415; 80048; 85025